=== PATIENT | female | born 1980 | race Caucasian/White ===

== ENCOUNTER 2016-07-26 11:27 | Emergency (ER) | payer SELFPAY ==
[~2016-07-26] VITALS: Ht 154.9 cm; Wt 80.0 kg
[~2016-07-26 11:27] MED LIST: IBUP800T23 PO; PENI500T PO; PERI0.126 SWISH-SPIT; SERO200T PO; SERO400T PO; ZANT150T2 PO
[2016-07-26 11:28] VITALS: BP 180/96; PULSE 83; RESP 14; TEMP 98; O2SAT 96
[2016-07-26] MEDS ORDERED: DEXAMETHASONE SOD PHOS 4 MG/ML VIAL IM ONE (12:15)
[2016-07-26] MEDS ORDERED: IBUPROFEN 800 MG TAB PO ONE (12:15)
[2016-07-26] MEDS ORDERED: BUPIVACAINE HCL PF 0.5% 10 ML VIAL INFIL ONE (12:15)
[2016-07-26] MEDS: RESP: ALBUTEROL 2.5 MG/IPRATROPIUM 0.5 MG NEB (SCH) INH (12:20)
--- NOTE | 2016-07-26 12:25 | PD ---
HPI Chief Complaint: Oral / Dental Pain or Problem Time Seen by Provider: 12:04 Travel History International Travel<30 days: No Contact w/Intl Traveler<30days: No Traveled to known affect area: No History of Present Illness HPI 36-year-old female history of asthma, migraines and bipolar disorder presents to the ED for evaluation of 3 day history of right lower dental pain. Rated 8/ 10. No alleviating or exacerbating factors reported. Patient states that she began to experience a dull headache on the right side of the face, radiating into the right ear ear and bottom jaw this morning. Gradual onset, accompanied by photosensitivity. Denies fever or chills, tearing of the eye, dizziness, vision changes, nausea or vomiting. She states this headache is similar to previous migraines. The patient states that she fractured a lower right tooth last week, inserted a temporary filling and saw a dentist. She states that she did not have the money to have the tooth pulled at the time. PFSH Past Medical History Asthma: Yes Blood Disorders: No Bipolar Disorder: Yes Anxiety: Yes Depression: Yes Heart Rhythm Problems: Yes (AFIB) Cancer: No Cardiac Catheterization: No Cardiovascular Problems: Yes High Cholesterol: Yes Chest Pain: Yes Congestive Heart Failure: No COPD: Yes Diabetes: No Diminished Hearing: No Endocrine: No ( ) Gastrointestinal Disorders: Yes GERD: Yes Genitourinary: No Headaches: Yes Hepatitis: Yes (C) Hiatal Hernia: Yes Hypertension: Yes Immune Disorder: No Implanted Vascular Access Dvce: Yes Insomnia: Yes Musculoskeletal: Yes (Back) Neurologic: No Psychiatric: Yes Reproductive: Yes Respiratory: Yes Integumentary: Yes Immunizations Current: Yes Migraines: Yes Myocardial Infarction: Yes (08/2015) Schizophrenia: Yes Seizures: Yes Sleep Apnea: No Ulcer: Yes PNEUMOCCOCAL Vaccine (Year): 2 ?: Not Menopausal: Yes : 4 Para: 2 Miscarriage: 1 : 1 Ovarian Cysts: Yes Past Surgical History Abdominal Surgery: Yes (HERNIA-APPY) Appendectomy: Yes Body Medical Devices: Plate in neck Cholecystectomy: Yes Coronary Artery Bypass Graft: No Gynecologic Surgery: Yes Hysterectomy: Yes Joint Replacement: Yes (CERVICAL FUSION C4-C5, TITANIUM PLATES) Neurologic Surgery: Yes (CERVICAL FUSION C4/C5-TITANIUM PLATES) Oral Surgery: Yes (WISDOM TEETH) Other Surgery: Yes (CYSTS REMOVED - RIGHT OVARY) Social History Alcohol Use: No Tobacco Use: Yes Substance Use: No Allergies-Medications (Allergen,Severity, Reaction): Coded Allergies: Bees (Verified Allergy, Severe, SWELLING, 07/26/16) Cipro (Verified Allergy, Severe, Edema, 07/26/16) Ciprofloxacin (Verified Allergy, Severe, SWELLING, 07/26/16) Contrast Media (Verified Allergy, Severe, 07/26/16) Grapefruit (Verified Allergy, Severe, TONGUE SWELLS, 07/26/16) Lyrica (Verified Allergy, Severe, NOT SURE, 07/26/16) Morphine (Verified Allergy, Severe, HIVES, 07/26/16) Toradol (Verified Allergy, Severe, HIVES, 07/26/16) Reported Meds & Prescriptions Reported Meds & Active Scripts Active Tramadol (Tramadol HCl) 50 Mg Tab 50 Mg PO Q8H PRN Ibuprofen 800 Mg Tab 800 Mg PO Q6HR PRN Ibuprofen 800 Mg Tab 800 Mg PO Q8H PRN Peridex Liq (Chlorhexidine Gluconate (Mouth) Liq) 0.12% Soln 15 Ml SWISH-SPIT BID 14 Days Penicillin V Potassium 500 Mg Tab 500 Mg PO Q6H 7 Days Reported Zantac (Ranitidine HCl) 150 Mg Tab 150 Mg PO DAILY Seroquel (Quetiapine Fumarate) 200 Mg Tab 200 Mg PO DAILY Seroquel (Quetiapine Fumarate) 400 Mg Tab 600 Mg PO HS Review of Systems Except as stated in HPI: all other systems reviewed are Neg Physical Exam Narrative GENERAL: Well-nourished, well-developed white female, lying on her side in a dark room in no acute distress. SKIN: Warm and dry. HEAD: Normocephalic. Atraumatic. EYES: No scleral icterus. No injection or drainage. PERRLA. EOMI. ENT: Pearly gonzales tympanic membranes bilaterally. Nasal mucosa is moist. Oropharynx without erythema, edema or exudate. DENTAL: No malocclusion. Tooth #30 is fractured with the pulp exposed. No erythema edema or exudates of the surrounding gingiva. NECK: Supple, trachea midline. No JVD or lymphadenopathy. CARDIOVASCULAR: Regular rate and rhythm without murmurs, gallops, or rubs.2+ DP and radial pulses bilaterally. RESPIRATORY: Diffuse wheezing in all lung clements. No accessory muscle use. GASTROINTESTINAL: Abdomen soft, non-tender, nondistended. + Bowel sounds MUSCULOSKELETAL: No cyanosis, or edema. Patient is ambulatory and moves extremities spontaneously. NEUROLOGICAL: Awake and alert. Cranial nerves II through XII intact. Motor and sensory grossly within normal limits. 5/5 muscle strength in all muscle groups. Normal speech. BACK: Nontender without obvious deformity. No CVA tenderness. Data Data Last Documented VS Vital Signs Date Time Temp Pulse Resp B/P Pulse Ox O2 Delivery O2 Flow Rate FiO2 07/26/16 11:28 98.0 83 14 180/96 96 Room Air Orders Bupivacaine Pf 0.5% Inj (Marcaine Pf 0.5 (07/26/16 12:15) Ibuprofen (Motrin) (07/26/16 12:15) Albuterol-Ipratropium Neb (Duoneb Neb) (07/26/16 12:15) Dexamethasone Inj (Decadron Inj) (07/26/16 12:15) MDM Medical Decision Making Medical Screen Exam Complete: Yes Emergency Medical Condition: Yes Differential Diagnosis Dental abscess versus dental fracture versus dental caries versus asthma exacerbation versus migraine headache versus other Narrative Course 36-year-old female history of asthma, migraines and bipolar disorder presents to the ED for evaluation of 3 day history of 8/10 right lower dental pain. Gradual onset. No alleviating or exacerbating factors reported. Accompanied by dull headache, radiating to the right ear and right jaw. Gradual onset with light sensitivity. Denies fever or chills, tearing of the eye, dizziness, vision changes, nausea or vomiting. She states this headache is similar to previous migraines. The patient states that she saw a dentist last week but cannot afford to have the tooth pulled. Vitals reviewed. Physical exam reveals a nontoxic-appearing white female, lying it on the stretcher in the dark in no acute distress. There is a fracture of tooth #30 with a pulp exposed. No evidence of dental abscess. No red flag headache symptoms. Auscultation of the chest reveals diffuse wheezing in all lung clements. An inferior alveolar dental block was performed with 2 cc of 0.5% Marcaine. This resulted in almost immediate improvement of her pain symptoms. She was administered 800 mg ibuprofen, IM dexamethasone and duo nebs 3. Recheck of the lungs reveals improvement. Patient was prescribed a short course of tramadol and ibuprofen. She is instructed to take medication as prescribed, follow up with the dentist. She understands that she may not be able to receive narcotic pain medications if she seeks them here again. She is stable and discharged home. Diagnosis Primary Impression: Dentalgia Additional Impressions: Tooth fracture Qualified Code: S02.5XXA - Closed fracture of tooth, initial encounter Migraine headache Qualified Code: G43.009 - Migraine without aura and without status migrainosus , not intractable Asthma exacerbation Referrals: Dentist Patient Instructions: General Instructions, Migraine Headache (ED), Toothache ( ED) Additional Instructions: Rest, hydrate. Avoid known stressors. Take pain medication as directed, as needed for pain. Follow-up with the dentist as discussed. Return to the ED for any urgent or emergent medical condition. Med/Other Pt SpecificInfo: Prescription(s) given Scripts Tramadol 50 Mg Tab50 Mg PO Q8H PRN (PAIN SCALE 6 TO 10) #10 TAB Ref 0 Prov:Judith Reich DO 07/26/16 Ibuprofen 800 Mg [id number] Mg PO Q6HR PRN (PAIN 1 TO 10 AND/OR AGITATION) #20 TAB Ref 0 Prov:Judith Reich DO 07/26/16 Disposition: 01 DISCHARGE HOME Condition: Stable Alexandra Gomez Jul 26, 2016 12:25
[2016-07-26] MEDS ORDERED: TRAM50TA PO ×2 (12:27→12:40)
[2016-07-26] MEDS ORDERED: IBUP800T23 PO (12:27)
== END 2016-07-26 13:07 | disposition home or self-care (01) ==
LOC: NEPB 11:27
DX: S02.5XXA Fracture of tooth (traumatic), initial encounter for closed fracture (principal); G43.009 Migraine without aura, not intractable, without status migrainosus; J45.901 Unspecified asthma with (acute) exacerbation; I48.91 Unspecified atrial fibrillation; E78.00 Pure hypercholesterolemia, unspecified; J44.9 Chronic obstructive pulmonary disease, unspecified; I10 Essential (primary) hypertension; Z72.0 Tobacco use; X58.XXXA Exposure to other specified factors, initial encounter
CPT/HCPCS: 64400; 94640; 94664; 96372; 99282; J1100

== ENCOUNTER 2016-10-05 18:23 | Emergency (ER) | payer SELFPAY ==
[~2016-10-05] VITALS: Ht 152.4 cm; Wt 81.0 kg
[~2016-10-05 18:23] MED LIST changes: +TRAM50TA PO
[2016-10-05 18:35] VITALS: BP 146/80; PULSE 74; RESP 16; TEMP 99.1; O2SAT 97
[2016-10-05 18:52] VITALS: BP 146/80; PULSE 75; RESP 16; TEMP 99.1; O2SAT 97
[2016-10-05] MEDS ORDERED: SODIUM CHLOR 0.9% 1000 ML INJ 1,000 ML IV ONE (18:59)
[2016-10-05] MEDS ORDERED: SODIUM CHLORIDE 0.9% FLUSH 10 ML FLUSH IVF PRN (19:00)
[2016-10-05] MEDS ORDERED: METOCLOPRAMIDE HCL 10 MG/2 ML VIAL IVP ONE (19:00)
[2016-10-05] MEDS ORDERED: DEXAMETHASONE SOD PHOS 20 MG/5 ML VIAL IV PUSH ONE (19:00)
[2016-10-05] MEDS ORDERED: diphenhydrAMINE HCL 50 MG/ML VIAL IVP ONE (19:00)
--- NOTE | 2016-10-05 19:12 | PD ---
HPI Chief Complaint: Headache Time Seen by Provider: 18:54 Travel History International Travel<30 days: No Contact w/Intl Traveler<30days: No Traveled to known affect area: No History of Present Illness HPI Patient is a 36-year-old female who presents to emergency room with complaints of migraine headache. Patient reports that she has history of migraines, she is in between neurologists at this time. Reports that she used to take Imitrex as well as Fioricet for her symptoms, reports that she has been taking these medications for so long, they no longer help her. Patient reports that her migraine started 2 days ago. Reports that she started did have her typical aura of a "low grade headache" and reports that she woke up the next morning with a "full blown migraine." Patient reports that she is having her typical symptoms with photophobia as well as nausea. Denies fever/chills. Reports that she usually gets some IV pain medications and this usually helps with her symptoms. Denies any other c/o at this time. PFSH Past Medical History Hx Anticoagulant Therapy: No Asthma: Yes Blood Disorders: No Bipolar Disorder: Yes Anxiety: Yes Depression: Yes Heart Rhythm Problems: Yes (AFIB) Cancer: No Cardiac Catheterization: No Cardiovascular Problems: Yes (HTN, [place]) High Cholesterol: Yes Chest Pain: Yes Congestive Heart Failure: No COPD: Yes Diabetes: No Diminished Hearing: No Endocrine: No ( ) Gastrointestinal Disorders: Yes (Gastoparesis) GERD: Yes Genitourinary: No Headaches: Yes Hepatitis: No Hiatal Hernia: Yes Heparin Induced Thrombocytopen: No Hypertension: Yes Immune Disorder: No Implanted Vascular Access Dvce: Yes Insomnia: Yes Musculoskeletal: Yes (Back) Neurologic: No Psychiatric: Yes Reproductive: Yes Respiratory: Yes Integumentary: Yes Immunizations Current: Yes Migraines: Yes Myocardial Infarction: Yes (08/2015) Schizophrenia: Yes Seizures: Yes Sleep Apnea: No Ulcer: Yes Tetanus Vaccination: < 5 Years PNEUMOCCOCAL Vaccine (Year): 2 ?: Not Menopausal: Yes : 4 Para: 2 Miscarriage: 1 : 1 Ovarian Cysts: Yes Past Surgical History Abdominal Surgery: Yes (HERNIA-APPY) Appendectomy: Yes Body Medical Devices: Plate in neck Cholecystectomy: Yes Coronary Artery Bypass Graft: No Gynecologic Surgery: Yes Hysterectomy: Yes Joint Replacement: Yes (CERVICAL FUSION C4-C5, TITANIUM PLATES) Neurologic Surgery: Yes (CERVICAL FUSION C4/C5-TITANIUM PLATES) Oral Surgery: Yes (WISDOM TEETH) Other Surgery: Yes (Appendectomy, Hernia, Back, Gallbladder) Family History Family Myocardial Infarction: Yes Social History Alcohol Use: No Tobacco Use: Yes (07/17 PPD) Substance Use: No Allergies-Medications (Allergen,Severity, Reaction): Coded Allergies: Bees (Verified Allergy, Severe, SWELLING, 10/05/16) Cipro (Verified Allergy, Severe, Edema, 10/05/16) Ciprofloxacin (Verified Allergy, Severe, SWELLING, 10/05/16) Contrast Media (Verified Allergy, Severe, 10/05/16) Grapefruit (Verified Allergy, Severe, TONGUE SWELLS, 10/05/16) Lyrica (Verified Allergy, Severe, NOT SURE, 10/05/16) Morphine (Verified Allergy, Severe, HIVES, 10/05/16) Toradol (Verified Allergy, Severe, HIVES, 10/05/16) Reported Meds & Prescriptions Reported Meds & Active Scripts Active Reported Zantac (Ranitidine HCl) 150 Mg Tab 150 Mg PO DAILY Seroquel (Quetiapine Fumarate) 200 Mg Tab 200 Mg PO DAILY Seroquel (Quetiapine Fumarate) 400 Mg Tab 600 Mg PO HS Review of Systems General / Constitutional: No: Fever Eyes: No: Visual changes HENT: Positive: Headaches Cardiovascular: No: Chest Pain or Discomfort Respiratory: No: Shortness of Breath Gastrointestinal: No: Abdominal Pain Genitourinary: No: Dysuria Musculoskeletal: No: Pain Skin: No Rash Neurologic: Positive: Headache, Other (photophobia), No: Weakness Psychiatric: No: Depression Endocrine: No: Polydipsia Hematologic/Lymphatic: No: Easy Bruising Physical Exam Narrative GENERAL: mild distress SKIN: Warm and dry. HEAD: Atraumatic. Normocephalic. EYES: Pupils equal and round. No scleral icterus. No injection or drainage. ENT: No nasal bleeding or discharge. Mucous membranes pink and moist. NECK: Trachea midline. No JVD. CARDIOVASCULAR: Regular rate and rhythm. No murmur appreciated. RESPIRATORY: No accessory muscle use. Clear to auscultation. Breath sounds equal bilaterally. GASTROINTESTINAL: Abdomen soft, non-tender, nondistended. Hepatic and splenic margins not palpable. MUSCULOSKELETAL: No obvious deformities. No clubbing. No cyanosis. No edema. NEUROLOGICAL: Awake and alert. No obvious cranial nerve deficits. Motor grossly within normal limits. Normal speech. CN 2-12 grossly intact with no neuro deficits PSYCHIATRIC: Appropriate mood and affect; insight and judgment normal. Data Data Last Documented VS Vital Signs Date Time Temp Pulse Resp B/P Pulse Ox O2 Delivery O2 Flow Rate FiO2 10/05/16 20:15 60 18 119/67 99 Room Air 10/05/16 18:52 99.1 Orders Complete Blood Count With Diff (10/05/16 18:59) Basic Metabolic Panel (Bmp) (10/05/16 18:59) Prothrombin Time / Inr (Pt) (10/05/16 18:59) Act Partial Throm Time (Ptt) (10/05/16 18:59) Ecg Monitoring (10/05/16 18:59) Iv Access Insert/Monitor (10/05/16 18:59) Oximetry (10/05/16 18:59) Sodium Chloride 0.9% Flush (Ns Flush) (10/05/16 19:00) Diphenhydramine Inj (Benadryl Inj) (10/05/16 19:00) Metoclopramide Inj (Reglan Inj) (10/05/16 19:00) Sodium Chlor 0.9% 1000 Ml Inj (Ns 1000 M (10/05/16 18:59) Dexamethasone Inj (Decadron Inj) (10/05/16 19:00) Drug Screen, Random Urine (10/05/16 19:01) Potassium Chloride Eff (K-Lyte Cl Eff) (10/05/16 20:45) Labs Laboratory Tests Test 10/05/16 10/05/16 19:40 19:50 Urine Opiates Screen NEG Urine Barbiturates Screen NEG Urine Amphetamines Screen NEG Urine Benzodiazepines Screen NEG Urine Cocaine Screen NEG Urine Cannabinoids Screen POS White Blood Count 8.2 TH/MM3 Red Blood Count 4.53 MIL/MM3 Hemoglobin 14.5 GM/DL Hematocrit 42.8 % Mean Corpuscular Volume 94.5 FL Mean Corpuscular Hemoglobin 31.9 PG Mean Corpuscular Hemoglobin 33.8 % Concent Red Cell Distribution Width 11.4 % Platelet Count 327 TH/MM3 Mean Platelet Volume 6.9 FL Neutrophils (%) (Auto) 50.5 % Lymphocytes (%) (Auto) 39.1 % Monocytes (%) (Auto) 7.6 % Eosinophils (%) (Auto) 2.3 % Basophils (%) (Auto) 0.5 % Neutrophils # (Auto) 4.2 TH/MM3 Lymphocytes # (Auto) 3.2 TH/MM3 Monocytes # (Auto) 0.6 TH/MM3 Eosinophils # (Auto) 0.2 TH/MM3 Basophils # (Auto) 0.0 TH/MM3 CBC Comment DIFF FINAL Differential Comment Prothrombin Time 11.1 SEC Prothromb Time International 1.0 RATIO Ratio Activated Partial 28.3 SEC Thromboplast Time Sodium Level 141 MEQ/L Potassium Level 3.3 MEQ/L Chloride Level 106 MEQ/L Carbon Dioxide Level 25.4 MEQ/L Anion Gap 10 MEQ/L Blood Urea Nitrogen 9 MG/DL Creatinine 0.67 MG/DL Estimat Glomerular Filtration 99 ML/MIN Rate Random Glucose 79 MG/DL Calcium Level 8.6 MG/DL [facility] Medical Decision Making Medical Screen Exam Complete: Yes Emergency Medical Condition: Yes Interpretation(s) Vital Signs Date Time Temp Pulse Resp B/P Pulse Ox O2 Delivery O2 Flow Rate FiO2 10/05/16 18:52 99.1 75 16 146/80 97 10/05/16 18:51 16 97 Room Air 10/05/16 18:35 99.1 74 16 146/80 97 Differential Diagnosis migraine headache, cephalgia, ich Narrative Course Patient is a 36-year-old female who presents to emergency with complaints of migraine headache, patient does have history of headaches in the past similar to her symptoms today. Patient reports that her symptoms have been continuous for the past 2 days, reports that she can't seem to break this migraine headache at home with OTC medications. Patient reports that her headache is exactly the same as previous headaches, patient with benign neuro exam with no neurological deficits. Patient with most likely migraine headache, unlikely that the patient would have an intracranial hemorrhage given her symptoms are typical for her and unchanged. Plan to administer patient migraine cocktail. Patient is requesting high-dose narcotic pain medications for treatment of her symptoms, discussed with patient that narcotic pain medications will most likely give her rebound migraine headache and I do not believe that this is the initial treatment for a migraine headache. Patient is agreeable to migraine cocktail. Plan to monitor patient carefully. CBC & BMP Diagram 10/05/16 19:50 Patient reevaluated, patient has complete resolutions of her symptoms at this time. Patient appreciative of care. Patient will follow-up with her primary care doctor as well as neurologist and return to emergency room as needed. Diagnosis Primary Impression: Migraine headache Qualified Code: G43.109 - Migraine with aura and without status migrainosus, not intractable Referrals: Melanie Giron MD Patient Instructions: General Instructions Additional Instructions: Please follow up with your primary care doctor Please follow-up with neurologist Return to the emergency room as needed Return to emergency room if symptoms progress or worsen Disposition: 01 DISCHARGE HOME Condition: Stable Judith Reich DO Oct 05, 2016 19:12 Judith Reich DO Oct 05, 2016 19:12
[2016-10-05 20:04] LABS: BARBITURATES, URINE NEG (NEG)
[2016-10-05 20:13] LABS: AMPHETAMINE, URINE NEG (NEG)
[2016-10-05 20:13] LABS: AUTOMATED NEUTROPHIL # 4.2 TH/MM3 (1.8-7.7); BASOPHIL % 0.5 % (0.0-2.0); EOSINOPHIL # 0.2 TH/MM3 (0-0.4); EOSINOPHIL % 2.3 % (0.0-4.0); HEMATOCRIT 42.8 % (35.0-46.0); HEMO FLAGS DIFF FINAL; LYMPH % 39.1 % (9.0-44.0); LYMPHOCYTE # 3.2 TH/MM3 (1.0-4.8); MEAN CELL VOLUME 94.5 FL (80.0-100.0); MEAN CORPUSCULAR HEMOGLOBIN 31.9 PG (27.0-34.0); MEAN CORPUSCULAR HGB CONC 33.8 % (32.0-36.0); MONO % 7.6 % (0.0-8.0); NEUT % 50.5 % (16.0-70.0); PLATELET COUNT 327 TH/MM3 (150-450); RED BLOOD COUNT 4.53 MIL/MM3 (4.00-5.30); RED CELL DISTRIBUTION WIDTH 11.4 % (11.6-17.2); WHITE BLOOD COUNT 8.2 TH/MM3 (4.0-11.0)
[2016-10-05 20:14] VITALS: RESP 18; O2SAT 99
[2016-10-05 20:15] VITALS: BP 119/67; PULSE 60; RESP 18; O2SAT 99
[2016-10-05 20:16] LABS: COCAINE, URINE NEG (NEG)
[2016-10-05 20:20] LABS: POTASSIUM 3.3 MEQ/L (3.5-5.1)
[2016-10-05 20:23] LABS: BICARBONATE 25.4 MEQ/L (21.0-32.0)
[2016-10-05 20:25] LABS: APTT (PATIENT) 28.3 SEC (24.3-30.1); PROTHROMBIN TIME - PATIENT 11.1 SEC (9.8-11.6)
[2016-10-05] MEDS ORDERED: POTASSIUM CHLORIDE 25 MEQ EFFERVESCENT TAB PO ONE (20:45)
[2016-10-05 21:10] VITALS: BP 111/76
== END 2016-10-05 21:18 | disposition home or self-care (01) ==
LOC: PHED 18:23
DX: G43.109 Migraine with aura, not intractable, without status migrainosus (principal); F20.9 Schizophrenia, unspecified; G47.00 Insomnia, unspecified; E78.00 Pure hypercholesterolemia, unspecified; F41.8 Other specified anxiety disorders; F17.210 Nicotine dependence, cigarettes, uncomplicated; I48.91 Unspecified atrial fibrillation; I25.2 Old myocardial infarction; Z98.890 Other specified postprocedural states
CPT/HCPCS: 80048; 80307; 85025; 85610; 85730; 96374; 96375; 99283; J1100; J1200; J2765; J7030

== ENCOUNTER 2017-01-30 09:37 | Emergency (ER) | payer SELFPAY ==
[~2017-01-30] VITALS: Ht 154.9 cm; Wt 82.0 kg
[~2017-01-30 09:37] MED LIST changes: -IBUP800T23 PO; -PENI500T PO; -PERI0.126 SWISH-SPIT; -TRAM50TA PO
[2017-01-30 09:41] VITALS: BP 194/106; PULSE 67; RESP 16; TEMP 98.1; O2SAT 100
[2017-01-30 10:01] VITALS: BP 178/107; PULSE 64; O2SAT 99
--- NOTE | 2017-01-30 10:07 | PD ---
HPI Chief Complaint: Abdominal Pain Time Seen by Provider: 09:53 Travel History International Travel<30 days: No Contact w/Intl Traveler<30days: No Traveled to known affect area: No History of Present Illness HPI 36yo F with PMH of peptic ulcer disease, gastroparesis, depression presents to the ED with c/o abdominal pain since yesterday. Pain is epigastric, radiating to the right upper abdomen and then to right flank. Pain is constant and she said she had similar pain in the past but it has been 2 years. Associated with nausea and NBNB vomiting. Also had foul smelling and dark urine. Denies any fever, chest pain, sob, diarrhea, hematuria, vaginal bleeding or discharge. Denies any alcohol abuse. Had partial hysterectomy for endometriosis as well as appendectomy. PFSH Past Medical History Hx Anticoagulant Therapy: No Asthma: Yes Blood Disorders: No Bipolar Disorder: Yes Anxiety: Yes Depression: Yes Heart Rhythm Problems: Yes (AFIB) Cancer: No Cardiac Catheterization: No Cardiovascular Problems: Yes (HTN, NH) High Cholesterol: Yes Chest Pain: Yes Congestive Heart Failure: No COPD: Yes Diabetes: No Diminished Hearing: No Gastrointestinal Disorders: Yes (Gastoparesis) GERD: Yes Genitourinary: No Headaches: Yes Hepatitis: No Hiatal Hernia: Yes Heparin Induced Thrombocytopen: No Hypertension: Yes Immune Disorder: No Implanted Vascular Access Dvce: Yes Insomnia: Yes Musculoskeletal: Yes (Back) Neurologic: No Psychiatric: Yes Reproductive: Yes Respiratory: Yes (ASTHMA) Integumentary: Yes Immunizations Current: Yes Migraines: Yes Myocardial Infarction: Yes (08/2015) Schizophrenia: Yes Seizures: Yes Sleep Apnea: No Ulcer: Yes Influenza Vaccination: Yes PNEUMOCCOCAL Vaccine (Year): 2 ?: Not Menopausal: Yes : 3 Para: 2 Miscarriage: 1 : 1 Ovarian Cysts: Yes Past Surgical History Abdominal Surgery: Yes (HERNIA-APPY) Appendectomy: Yes Body Medical Devices: Plate in neck Cholecystectomy: Yes Coronary Artery Bypass Graft: No Gynecologic Surgery: Yes Hysterectomy: Yes (PARTIAL) Joint Replacement: Yes (CERVICAL FUSION C4-C5, TITANIUM PLATES) Neurologic Surgery: Yes (CERVICAL FUSION C4/C5-TITANIUM PLATES) Oral Surgery: Yes (WISDOM TEETH) Other Surgery: Yes (Appendectomy, Hernia, Back, Gallbladder) Family History Family Myocardial Infarction: Yes Social History Alcohol Use: Yes (RARELY) Tobacco Use: Yes (1 PPD) Substance Use: No Allergies-Medications (Allergen,Severity, Reaction): Coded Allergies: Bees (Verified Allergy, Severe, SWELLING, 01/30/17) Cipro (Verified Allergy, Severe, Edema, 01/30/17) Ciprofloxacin (Verified Allergy, Severe, SWELLING, 01/30/17) Contrast Media (Verified Allergy, Severe, 01/30/17) Grapefruit (Verified Allergy, Severe, TONGUE SWELLS, 01/30/17) Lyrica (Verified Allergy, Severe, NOT SURE, 01/30/17) Morphine (Verified Allergy, Severe, HIVES, 01/30/17) Toradol (Verified Allergy, Severe, HIVES, 01/30/17) Reported Meds & Prescriptions Reported Meds & Active Scripts Active Reported Zantac (Ranitidine HCl) 150 Mg Tab 150 Mg PO BID Seroquel (Quetiapine Fumarate) 200 Mg Tab 200 Mg PO DAILY Seroquel (Quetiapine Fumarate) 400 Mg Tab 600 Mg PO HS Review of Systems Except as stated in HPI: all other systems reviewed are Neg Physical Exam Narrative GENERAL: 36yo F in mild distress. SKIN: Focused skin assessment warm/dry. HEAD: Atraumatic. Normocephalic. CARDIOVASCULAR: Regular rate and rhythm. No murmur appreciated. RESPIRATORY: No accessory muscle use. Clear to auscultation. Breath sounds equal bilaterally. GASTROINTESTINAL: Abdomen soft, Diffuse tenderness to palpation but more epigastric and RUQ. No rebound tenderness or guarding. BACK: +CVA tenderness on right. MUSCULOSKELETAL: No obvious deformities. No clubbing. No cyanosis. No edema. NEUROLOGICAL: Awake and alert. No obvious cranial nerve deficits. Motor grossly within normal limits. Normal speech. PSYCHIATRIC: Appropriate mood and affect; insight and judgment normal. Data Data Last Documented VS Vital Signs Date Time Temp Pulse Resp B/P Pulse Ox O2 Delivery O2 Flow Rate FiO2 01/30/17 11:45 69 21 134/69 99 Room Air 01/30/17 09:41 98.1 Orders Complete Blood Count With Diff (01/30/17 10:01) Comprehensive Metabolic Panel (01/30/17 10:01) Lipase (01/30/17 10:01) Prothrombin Time / Inr (Pt) (01/30/17 10:01) Act Partial Throm Time (Ptt) (01/30/17 10:01) Urinalysis - C+S If Indicated (01/30/17 10:01) Iv Access Insert/Monitor (01/30/17 10:01) Ecg Monitoring (01/30/17 10:01) Oximetry (01/30/17 10:01) Sodium Chloride 0.9% Flush (Ns Flush) (01/30/17 10:15) Ed Urine Pregnancytest Poc (01/30/17 10:01) Ct Abd/Pel W/O Iv Contrast (01/30/17 ) Ondansetron Inj (Zofran Inj) (01/30/17 10:15) Hydromorphone Pf Inj (Dilaudid Pf Inj) (01/30/17 12:15) Labs Laboratory Tests Test 01/30/17 01/30/17 10:25 10:35 White Blood Count 7.8 TH/MM3 Red Blood Count 4.17 MIL/MM3 Hemoglobin 13.8 GM/DL Hematocrit 39.8 % Mean Corpuscular Volume 95.5 FL Mean Corpuscular Hemoglobin 33.2 PG Mean Corpuscular Hemoglobin 34.8 % Concent Red Cell Distribution Width 12.9 % Platelet Count 231 TH/MM3 Mean Platelet Volume 7.7 FL Neutrophils (%) (Auto) 58.9 % Lymphocytes (%) (Auto) 32.5 % Monocytes (%) (Auto) 5.4 % Eosinophils (%) (Auto) 2.5 % Basophils (%) (Auto) 0.7 % Neutrophils # (Auto) 4.6 TH/MM3 Lymphocytes # (Auto) 2.5 TH/MM3 Monocytes # (Auto) 0.4 TH/MM3 Eosinophils # (Auto) 0.2 TH/MM3 Basophils # (Auto) 0.1 TH/MM3 CBC Comment AUTO DIFF Differential Comment AUTO DIFF CONFIRMED Prothrombin Time 10.6 SEC Prothromb Time International 1.0 RATIO Ratio Activated Partial 25.6 SEC Thromboplast Time Sodium Level 141 MEQ/L Potassium Level 3.5 MEQ/L Chloride Level 111 MEQ/L Carbon Dioxide Level 18.9 MEQ/L Anion Gap 11 MEQ/L Blood Urea Nitrogen 6 MG/DL Creatinine 0.69 MG/DL Estimat Glomerular Filtration 95 ML/MIN Rate Random Glucose 143 MG/DL Calcium Level 8.6 MG/DL Total Bilirubin 0.2 MG/DL Aspartate Amino Transf 10 U/L (AST/SGOT) Alanine Aminotransferase 18 U/L (ALT/SGPT) Alkaline Phosphatase 50 U/L Total Protein 6.7 GM/DL Albumin 3.3 GM/DL Lipase 144 U/L Urine Color LIGHT-YELLOW Urine Turbidity CLEAR Urine pH 6.5 Urine Specific [place] 1.003 Urine Protein NEG mg/dL Urine Glucose (UA) NEG mg/dL Urine Ketones NEG mg/dL Urine Occult Blood NEG Urine Nitrite NEG Urine Bilirubin NEG Urine Urobilinogen LESS THAN 2.0 MG/DL Urine Leukocyte Esterase NEG Urine RBC LESS THAN 1 /hpf Urine WBC LESS THAN 1 /hpf Urine Squamous Epithelial <1 /hpf Cells Microscopic Urinalysis Comment CULT NOT INDICATED MDM Medical Decision Making Medical Screen Exam Complete: Yes Emergency Medical Condition: Yes Differential Diagnosis Nephrolithiasis vs. colitis vs. pyelonephritis vs. gastroparesis vs. pancreatitis vs. PUD Narrative Course 36yo F with abdominal pain. Pt states only dilaudid works and she is allergic to morphine and toradol. Pt given 0.5mg of IV dilaudid which improved pain. Labs reviewed, no leukocytosis. Lipase normal. UA negative. CTa/p showed no acute inflammatory process. Diverticulosis of sigmoid colon. Status post cholecystectomy, appendectomy and hysterectomy. VS stable. Pt given zofran which helped with nausea. However, pt is requesting phenergan as prescription since it is cheaper. Return precautions given. Diagnosis Primary Impression: Abdominal pain Qualified Code: R10.11 - Right upper quadrant abdominal pain Patient Instructions: General Instructions Departure Forms: Tests/Procedures, Work Release Enter return to work date: Feb 01, 2017 Additional Instructions: Please follow up with [facility] as outpatient in 3-7 days. Return to the ED if symptoms worsen. Med/Other Pt SpecificInfo: Prescription(s) given Scripts Acetaminophen (Tylenol)325 Mg [id number] Mg PO Q6H PRN (PAIN SCALE 1 TO 4) #20 TAB Ref 0 Prov:ValeriKat DO 01/30/17 Promethazine (Phenergan)25 Mg [id number] Mg PO Q12HR PRN (NAUSEA OR VOMITING) #7 TAB Ref 0 Prov:ValeriKat DO 01/30/17 Disposition: 01 DISCHARGE HOME Condition: Stable TrammellKta DO Jan 30, 2017 10:07
[2017-01-30] MEDS ORDERED: ONDANSETRON HCL 4 MG/2 ML VIAL IV PUSH ONE (10:15)
[2017-01-30] MEDS ORDERED: SODIUM CHLORIDE 0.9% FLUSH 10 ML FLUSH IV FLUSH PRN (10:15)
[2017-01-30 10:16] VITALS: O2SAT 99
[2017-01-30 11:03] LABS: AUTOMATED NEUTROPHIL # 4.6 TH/MM3 (1.8-7.7); BASOPHIL # 0.1 TH/MM3 (0-0.2); BASOPHIL % 0.7 % (0.0-2.0); EOSINOPHIL # 0.2 TH/MM3 (0-0.4); EOSINOPHIL % 2.5 % (0.0-4.0); HEMATOCRIT 39.8 % (35.0-46.0); LYMPH % 32.5 % (9.0-44.0); LYMPHOCYTE # 2.5 TH/MM3 (1.0-4.8); MEAN CELL VOLUME 95.5 FL (80.0-100.0); MEAN CORPUSCULAR HEMOGLOBIN 33.2 PG (27.0-34.0); MEAN CORPUSCULAR HGB CONC 34.8 % (32.0-36.0); MONO % 5.4 % (0.0-8.0); NEUT % 58.9 % (16.0-70.0); PLATELET COUNT 231 TH/MM3 (150-450); RED BLOOD COUNT 4.17 MIL/MM3 (4.00-5.30); RED CELL DISTRIBUTION WIDTH 12.9 % (11.6-17.2); WHITE BLOOD COUNT 7.8 TH/MM3 (4.0-11.0)
[2017-01-30 11:06] LABS: BLOOD, URINE NEG (NEG); GLUCOSE,URINE NEG (NEG); KETONE, URINE NEG (NEG); NITRITE,URINE NEG (NEG); PH, URINE 6.5 (5.0-8.5); SQUAMOUS EPITHELIAL CELL URINE <1 /hpf (0-5); URINE COLOR LIGHT-YELLOW (YELLW/STRAW)
[2017-01-30 11:08] LABS: APTT (PATIENT) 25.6 SEC (24.3-30.1); PROTHROMBIN TIME - PATIENT 10.6 SEC (9.8-11.6)
[2017-01-30 11:10] LABS: COMMENT (UR) CULT NOT INDICATED; CULTURE IF INDICATED CULT NOT INDICATED
[2017-01-30 11:11] LABS: HEMO FLAGS AUTO DIFF
[2017-01-30 11:22] LABS: ANION GAP 11 MEQ/L (5-15); AST (GOT) 10 U/L (15-37); BICARBONATE 18.9 MEQ/L (21.0-32.0); BLOOD UREA NITROGEN 6 MG/DL (7-18); CHLORIDE 111 MEQ/L (98-107); GLOMERULAR FILTRATION RATE 95 ML/MIN (>89); POTASSIUM 3.5 MEQ/L (3.5-5.1); SODIUM (NA) 141 MEQ/L (136-145)
[2017-01-30 11:25] LABS: ALKALINE PHOSPHATASE 50 U/L (45-117); ALT (GPT) 18 U/L (10-53); TOTAL BILIRUBIN ADULT 0.2 MG/DL (0.2-1.0)
[2017-01-30 11:45] VITALS: BP 134/69; PULSE 69; RESP 21; O2SAT 99
[2017-01-30 11:55] LABS: SCAN/DIFF AUTO DIFF CONFIRMED
[2017-01-30] MEDS ORDERED: HYDROmorphone HCL PF 1 MG/ML VIAL IV PUSH ONE (12:15)
--- NOTE | 2017-01-30 13:07 | RADRPT ---
EXAM DATE/TIME: 01/30/2017 12:44 [facility] COMPARISON: CT ABDOMEN & PELVIS W/O CONTRAST, June 07, 2015, 1:33. INDICATIONS : Right upper abdomen pain ORAL CONTRAST: No oral contrast ingested. RADIATION DOSE: 13.72 CTDIvol (mGy) MEDICAL HISTORY : Cardiovascular disease. Hypertension. SURGICAL HISTORY : Cholecystectomy. Appendectomy.Hernia repair,Partial hysterectomy ENCOUNTER: Initial ACUITY: 1 day PAIN SCALE: 8/10 LOCATION: Abdomen TECHNIQUE: Volumetric scanning of the abdomen and pelvis was performed. Using automated exposure control and ad justment of the mA and/or kV according to patient size, radiation dose was kept as low as reasonably achievable to obtain optimal diagnostic quality images. DICOM format image data is available electro nically for review and comparison. FINDINGS: LOWER LUNGS: The visualized lower lungs are clear. LIVER: Homogeneous density without lesion. There is no dilation of the biliary tree. Cholecystectomy clips. SPLEEN: Normal size without lesion. PANCREAS: Within normal limits. KIDNEYS: Normal in size and shape. There is no mass, stone, or hydronephrosis. ADRENAL GLANDS: Within normal limits. VASCULAR: There is no aortic aneurysm. BOWEL/MESENTERY: Postsurgical changes with appendectomy. Bowel unremarkable. No bowel obstruction. There is no free i ntraperitoneal air or fluid. ABDOMINAL WALL: Within normal limits. RETROPERITONEUM: There is no lymphadenopathy. BLADDER: No wall thickening or mass. REPRODUCTIVE: Uterus surgically absent. INGUINAL: There is no lymphadenopathy or hernia. MUSCULOSKELETAL: Within normal limits for patient age. CONCLUSION: 1. No acute inflammatory process. 2. Diverticulosis of the sigmoid colon. 3. Status post cholecystectomy. 4. Appendectomy. 5. Status post hysterectomy. Phil Vargas MD on January 30, 2017 at 13:01 Board Certified Radiologist. This report was verified electronically.
[2017-01-30] MEDS ORDERED: PROM25TA10 PO (13:33)
[2017-01-30] MEDS ORDERED: TYLE325T PO (13:33)
== END 2017-01-30 13:52 | disposition home or self-care (01) ==
LOC: NEPD 09:37
DX: K57.30 Diverticulosis of large intestine without perforation or abscess without bleeding (principal); F20.9 Schizophrenia, unspecified; I25.2 Old myocardial infarction; I10 Essential (primary) hypertension; K21.9 Gastro-esophageal reflux disease without esophagitis; J44.9 Chronic obstructive pulmonary disease, unspecified; E78.00 Pure hypercholesterolemia, unspecified; I48.91 Unspecified atrial fibrillation; F31.9 Bipolar disorder, unspecified
CPT/HCPCS: 74176; 80053; 81001; 83690; 84703; 85025; 85610; 85730; 96374; 96375; 99285; J1170; J2405

== ENCOUNTER 2017-07-21 10:04 | Emergency (ER) | payer SELFPAY ==
[~2017-07-21 10:04] MED LIST changes: +PROM25TA10 PO; +TYLE325T PO
[2017-07-21 10:05] VITALS: BP 166/82; PULSE 86; RESP 16; TEMP 97.7; O2SAT 95
[2017-07-21] MEDS ORDERED: HYDR-3580 (10:17)
[2017-07-21] MEDS ORDERED: HYDR1SOL6 (10:17)
[2017-07-21] MEDS ORDERED: predniSONE 20 MG TAB PO ONE (10:45)
[2017-07-21] MEDS ORDERED: RESP: ALBUTEROL 2.5 MG/IPRATROPIUM 0.5 MG NEB (SCH) NEB ONE (10:45)
--- NOTE | 2017-07-21 10:47 | PD ---
HPI Chief Complaint: Chest Pain Time Seen by Provider: 10:13 Travel History International Travel<30 days: No Contact w/Intl Traveler<30days: No Traveled to known affect area: No History of Present Illness HPI The patient was seen and examined in the presence of the nurse. This patient complains of cough and congestion and chest pain in the left side when she coughs or takes a breath. Also when she moves her torso. Severity is moderate. Duration 2 days. No injury. No fever. No alleviating factors. He has history of asthma and smokes. She's been wheezing. She ran out of her inhaler. PFSH Past Medical History Hx Anticoagulant Therapy: No Asthma: Yes Blood Disorders: No Bipolar Disorder: Yes Anxiety: Yes Depression: Yes Heart Rhythm Problems: Yes (AFIB) Cancer: No Cardiac Catheterization: No Cardiovascular Problems: Yes High Cholesterol: Yes Chest Pain: Yes Congestive Heart Failure: No COPD: Yes Diabetes: No Diminished Hearing: No Gastrointestinal Disorders: Yes GERD: Yes Genitourinary: No Headaches: Yes Hepatitis: No Hiatal Hernia: Yes Heparin Induced Thrombocytopen: No Hypertension: Yes Immune Disorder: No Implanted Vascular Access Dvce: Yes Insomnia: Yes Musculoskeletal: Yes Neurologic: No Psychiatric: Yes Reproductive: Yes Respiratory: Yes (ASTHMA) Integumentary: Yes Immunizations Current: Yes Migraines: Yes Myocardial Infarction: Yes (08/2015) Schizophrenia: Yes Seizures: Yes Sleep Apnea: No Ulcer: Yes Tetanus Vaccination: > 5 Years PNEUMOCCOCAL Vaccine (Year): 2 ?: Not Menopausal: Yes : 3 Para: 2 Miscarriage: 1 : 1 Ovarian Cysts: Yes Past Surgical History Abdominal Surgery: Yes (HERNIA-APPY) Appendectomy: Yes Body Medical Devices: Plate in neck Cholecystectomy: Yes Coronary Artery Bypass Graft: No Gynecologic Surgery: Yes Hysterectomy: Yes (PARTIAL) Joint Replacement: Yes (CERVICAL FUSION C4-C5, TITANIUM PLATES) Neurologic Surgery: Yes (CERVICAL FUSION C4/C5-TITANIUM PLATES) Oral Surgery: Yes (WISDOM TEETH) Other Surgery: Yes (Appendectomy, Hernia, Back, Gallbladder) Family History Family Myocardial Infarction: Yes Social History Alcohol Use: Yes (RARELY) Tobacco Use: Yes (1 PPD) Substance Use: No Allergies-Medications (Allergen,Severity, Reaction): Coded Allergies: bee venom protein (honey bee) (Unverified Allergy, Severe, SWELLING, ) ciprofloxacin (Unverified Allergy, Severe, SWELLING, 07/21/17) diatrizoate meglumine (Unverified Allergy, Severe, 07/21/17) gadobenic acid (Unverified Allergy, Severe, 07/21/17) gadodiamide (Unverified Allergy, Severe, 07/21/17) gadoteridol (Unverified Allergy, Severe, 07/21/17) grapefruit (Unverified Allergy, Severe, TONGUE SWELLS, 07/21/17) iodixanol (Unverified Allergy, Severe, 07/21/17) iohexol (Unverified Allergy, Severe, 07/21/17) ketorolac (Unverified Allergy, Severe, HIVES, 07/21/17) morphine (Unverified Allergy, Severe, HIVES, 07/21/17) pregabalin (Unverified Allergy, Severe, NOT SURE, 07/21/17) Reported Meds & Prescriptions Reported Meds & Active Scripts Active Prednisone 20 Mg Tab 40 Mg PO DAILY Take 40 mg (2 tablets) daily for 5 days Ventolin Hfa 18 GM Inh (Albuterol Sulfate) 90 Mcg/Act Aer 2 Puff INH Q4H PRN Reported Hydrocodone-Acetamin 7.5-325 (Hydrocodone/Acetaminophen) 7.5 Mg-325 Mg Tablet Zantac (Ranitidine HCl) 150 Mg Tab 150 Mg PO BID Seroquel (Quetiapine Fumarate) 400 Mg Tab 600 Mg PO HS Review of Systems General / Constitutional: No: Fever Eyes: No: Visual changes HENT: No: Headaches Cardiovascular: Positive: Chest Pain or Discomfort Respiratory: Positive: Cough, Shortness of Breath, Wheezing Gastrointestinal: No: Abdominal Pain Genitourinary: No: Dysuria Musculoskeletal: No: Pain Skin: No Rash Neurologic: No: Weakness Psychiatric: No: Depression Endocrine: No: Polydipsia Hematologic/Lymphatic: No: Easy Bruising Physical Exam Narrative GENERAL: Well-nourished, well-developed patient in no apparent distress. SKIN: Focused skin assessment reveals no rash and nodules. Skin is Warm and dry. HEAD: Atraumatic. Normocephalic. EYES: Pupils equal and round. No scleral icterus. No injection or drainage. ENT: No nasal bleeding or discharge. Mucous membranes pink and moist. NECK: Trachea midline. No JVD. CARDIOVASCULAR: Regular rate and rhythm. No murmur appreciated. RESPIRATORY: No accessory muscle use. Expiratory wheezing throughout . Breath sounds equal bilaterally. GASTROINTESTINAL: Abdomen soft, non-tender, nondistended. Hepatic and splenic margins not palpable. MUSCULOSKELETAL: No obvious deformities. No clubbing. No cyanosis. No edema. Prominent reproducible rib tenderness in the left anterior and posterior axillary lines. NEUROLOGICAL: Awake and alert. No obvious cranial nerve deficits. Motor grossly within normal limits. Normal speech. PSYCHIATRIC: Appropriate mood and affect; insight and judgment normal. Data Data Last Documented VS Vital Signs Date Time Temp Pulse Resp B/P (MAP) Pulse Ox O2 Delivery O2 Flow Rate FiO2 07/21/17 10:05 97.7 86 16 166/82 (110) 95 Orders Orders Electrocardiogram (07/21/17 ) Chest, Single Ap (07/21/17 ) Albuterol-Ipratropium Neb (Duoneb Neb) (07/21/17 10:45) Prednisone (Deltasone) (07/21/17 10:45) MDM Medical Decision Making Medical Screen Exam Complete: Yes Emergency Medical Condition: Yes Medical Record Reviewed: Yes Differential Diagnosis Asthma, bronchitis, costochondritis Narrative Course I have reviewed the patient's electronic medical record. Patient normal stress testing last year. As an inpatient I gave her a nebulizer treatment and a dose of prednisone I reviewed her EKG which shows sinus rhythm and no ST elevation I reviewed her chest x-ray is normal Patient has chest wall discomfort as well as asthma and likely viral bronchitis We discussed smoking cessation I prescribed her 5 days of prednisone and an albuterol inhaler Diagnosis Primary Impression: Asthma exacerbation Qualified Codes: J45.31 - Mild persistent asthma with (acute) exacerbation Additional Impressions: Acute bronchitis Qualified Codes: J20.9 - Acute bronchitis, unspecified Chest wall pain Additional Instructions: The patient was advised to follow up with their physician and return if they worsen. Stop smoking Med/Other Pt SpecificInfo: Prescription(s) given Scripts Prednisone (Prednisone) 20 Mg Tab 40 MG PO DAILY, #10 TAB 0 Refills Take 40 mg (2 tablets) daily for 5 days Prov: Ruben Montoya MD 07/21/17 Albuterol 18 GM Inh (Ventolin Hfa 18 GM Inh) 90 Mcg/Act Aer 2 PUFF INH Q4H Y for SHORTNESS OF BREATH, #1 INHALER 0 Refills Prov: Ruben Montoya MD 07/21/17 Disposition: 01 DISCHARGE HOME Condition: Stable Ruben Montoya MD Jul 21, 2017 10:47
--- NOTE | 2017-07-21 11:24 | RADRPT ---
EXAM DATE/TIME: 07/21/2017 11:05 [facility] COMPARISON: CHEST SINGLE AP, March 25, 2016, 21:42. INDICATIONS : Chest pain. MEDICAL HISTORY : Cardiovascular disease. Hypertension. SURGICAL HISTORY : Cholecystectomy. Appendectomy.Hernia repair,Partial hysterectomy. ENCOUNTER: Initial ACUITY: 3 days PAIN SCORE: 6/10 LOCATION: Left upper chest FINDINGS: A single view of the chest demonstrates the lungs to be symmetrically aerated without evidence of mas s, infiltrate or effusion. The cardiomediastinal contours are unremarkable. Osseous structures are intact. CONCLUSION: No acute disease. Neri Guzman MD on July 21, 2017 at 11:22 Board Certified Radiologist. This report was verified electronically.
[2017-07-21] MEDS ORDERED: PRED20 PO (11:29)
[2017-07-21] MEDS ORDERED: VENTAER INH (11:29)
--- NOTE | 2017-07-22 13:46 | EKG ---
Date Performed: 07/21/2017 Time Performed: 10:52:43 PTAGE: 37 years EKG: Sinus rhythm POSSIBLE RIGHT VENTRICULAR CONDUCTION DELAY BORDERLINE ECG Since PREVIOUS TRACING , no significant change noted PREVIOUS TRACIN03/26/2016 03.51 DOCTOR: Bhanu Bosch Interpretating Date/Time 07/22/2017 13:45:37
== END 2017-07-21 11:42 | disposition home or self-care (01) ==
LOC: NEPD 10:04
DX: J45.901 Unspecified asthma with (acute) exacerbation (principal); F31.9 Bipolar disorder, unspecified; F41.9 Anxiety disorder, unspecified; I48.91 Unspecified atrial fibrillation; E78.00 Pure hypercholesterolemia, unspecified; J44.9 Chronic obstructive pulmonary disease, unspecified; K21.9 Gastro-esophageal reflux disease without esophagitis; I10 Essential (primary) hypertension; F20.9 Schizophrenia, unspecified
CPT/HCPCS: 71045; 93005; 94664; 99284; J7512

== ENCOUNTER 2017-08-04 16:40 | Emergency (ER) | payer SELFPAY ==
[~2017-08-04 16:40] MED LIST changes: +HYDR-3580; +PRED20 PO; -PROM25TA10 PO; -SERO200T PO; -TYLE325T PO; +VENTAER INH
[2017-08-04 16:46] VITALS: BP 168/96; PULSE 76; RESP 18; TEMP 97.8; O2SAT 99
[2017-08-04] MEDS ORDERED: oxyCODONE/ACETAMINOPHEN 5 MG/325 MG TAB PO ONE (17:30)
[2017-08-04] MEDS ORDERED: BENZ100 PO (17:30)
[2017-08-04] MEDS ORDERED: VENTAER INH (17:30)
[2017-08-04] MEDS ORDERED: RESP: ALBUTEROL 2.5 MG/IPRATROPIUM 0.5 MG NEB (SCH) NEB ONE (17:30)
[2017-08-04] MEDS ORDERED: BENZONATATE 100 MG CAP PO ONE (17:30)
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
[2017-08-06] MEDS ORDERED: CYCL10TA PO (14:32)
== END 2017-08-04 18:39 | disposition home or self-care (01) ==
LOC: NEPD 16:40
DX: J44.0 Chronic obstructive pulmonary disease with (acute) lower respiratory infection (principal); J20.9 Acute bronchitis, unspecified; I10 Essential (primary) hypertension; I48.91 Unspecified atrial fibrillation; E78.00 Pure hypercholesterolemia, unspecified; F31.9 Bipolar disorder, unspecified; F41.9 Anxiety disorder, unspecified; I25.2 Old myocardial infarction; F17.200 Nicotine dependence, unspecified, uncomplicated
CPT/HCPCS: 94664; 99284

== ENCOUNTER 2018-01-26 08:31 | Observation (INO) ==
--- NOTE | 2018-01-26 09:29 | ED ---
HPI General Chief complaint: Medical Clearance Stated complaint: Head Pain/Stomach Pain Time Seen by Provider: 01/26/18 09:29 History of Present Illness HPI narrative: Patient 37-year-old female presents emergency department for evaluation of 2 complaints, versus headache which is been intermittent over the past 2-3 days, this is also been accompanied by epigastric and right upper quadrant abdominal pain. Patient status post cholecystectomy. She has tried some ibuprofen at home without significant relief. She states that it started 2 days ago when she had a few shots of liquor, she states used to be much heavy drinker but has not drank anything significantly in some time for this. No history of pancreatitis in the past, no fevers no cough no congestion, nonbloody and nonbilious emesis no diarrhea. States there is no thunderclap presentation to her headache, denies any visual difficulties. Related Data Home Medications Medication Instructions Recorded Confirmed ibuprofen 400 mg PO QID PRN 01/26/18 01/26/18 loratadine [Claritin] 10 mg PO DAILY 01/26/18 01/26/18 quetiapine [Seroquel XR] 600 mg PO HS 01/26/18 01/26/18 ranitidine HCl [Zantac] 150 mg PO BID 01/26/18 01/26/18 Allergies Allergy/AdvReac Type Severity Reaction Status Date / Time bee venom protein (honey bee) Allergy Severe SWELLING Verified 01/26/18 08:51 ciprofloxacin Allergy Severe SWELLING Verified 01/26/18 08:51 diatrizoate meglumine Allergy Severe Rash, Unverified 01/26/18 08:51 Localized gadobenic acid Allergy Severe Rash, Unverified 01/26/18 08:51 Localized gadodiamide Allergy Severe Rash, Unverified 01/26/18 08:51 Localized gadoteridol Allergy Severe Rash, Unverified 01/26/18 08:51 Localized grapefruit Allergy Severe TONGUE Verified 01/26/18 08:51 SWELLS iodixanol Allergy Severe Rash, Unverified 01/26/18 08:51 Localized iohexol Allergy Severe Rash, Unverified 01/26/18 08:51 Localized ketorolac Allergy Severe HIVES Verified 01/26/18 08:51 morphine Allergy Severe HIVES Unverified 08/06/17 13:41 pregabalin Allergy Severe NOT SURE Unverified 08/06/17 13:41 Review of Systems Except as stated in HPI: all other systems reviewed are negative [facility] Medical History Medical History Depression (Acute) GERD (gastroesophageal reflux disease) (Acute) Surgical History Surgical History H/O hernia repair (Acute) History of cholecystectomy (Acute) History of dental surgery (Acute) History of partial hysterectomy (Acute) Hx of appendectomy (Acute) Social History Social History Substance History: Active Abuse Second Hand Smoke Exposure: Yes Smoking Status: Current every day smoker Tobacco Type: Cigarettes How Often Do You Have a Drink Containing Alcohol: Never Recent Travel in [facility] within the Last 8 Weeks: No Recent Out of Country Travel within the Last 8 Weeks: No Substance Abuse Detail Marijuana: Substance Use Status: Active Route Used Substance Abuse: Inhalation Reason for Use: Calm Down Immunization History Tetanus Immunization: Unsure Hx Influenza Vaccine This Season: No Exam Narrative Exam Narrative: GENERAL: Well-developed appears uncomfortable peer SKIN: Focused skin assessment warm/dry. HEAD: Atraumatic. Normocephalic. EYES: Pupils equal and round. No scleral icterus. No injection or drainage. ENT: No nasal bleeding or discharge. Mucous membranes pink and moist. NECK: Trachea midline. No JVD. CARDIOVASCULAR: Regular rate and rhythm. No murmur appreciated. RESPIRATORY: No accessory muscle use. Clear to auscultation. Breath sounds equal bilaterally. GASTROINTESTINAL: Abdomen soft, moderately tender in the epigastric area, nondistended. Hepatic and splenic margins not palpable. MUSCULOSKELETAL: No obvious deformities. No clubbing. No cyanosis. No edema. NEUROLOGICAL: Awake and alert. No obvious cranial nerve deficits. Motor grossly within normal limits. Normal speech. PSYCHIATRIC: Appropriate mood and affect; insight and judgment normal. Course Initial Documented Vital Signs Temperature 97.9 F 01/26/18 08:36 Pulse Rate 88 01/26/18 08:36 Respiratory Rate 15 01/26/18 08:36 Blood Pressure 197/94 H 01/26/18 08:36 Pulse Oximetry 99 01/26/18 08:36 Last Documented Vital Signs Temperature 98.2 F 01/27/18 16:00 Pulse Rate 53 L 01/27/18 16:00 Respiratory Rate 16 01/27/18 16:00 Blood Pressure 123/74 01/27/18 16:00 Pulse Oximetry 98 01/27/18 16:00 Medical Decision Making MDM Narrative Medical decision making narrative: Patient room to the emergency department, she appears uncomfortable but nontoxic. She did have some tenderness in the right upper quadrant epigastric area. Labs were significant for pancreatitis, fairly mild elevation in lipase with the patient's been vomiting for 3 days, no significant dehydration on labs. The certainly would make an observation criteria. There is no indication for CT scanning of her head, CT scan of the abdomen did not show any acute abnormality. Discussed results with patient she is agreeable to stay, initially given Benadryl Reglan, she still was nauseous and had significant abdominal pain. Morphine and Zofran were given. She was discussed with the residents for admission Differential Diagnosis Differential Diagnosis: Headache, tension headache, cluster headache, migraine headache, acute intracranial abnormality highly unlikely, pancreatitis, gastritis, gastroenteritis. POC Test Results POC Urine Results: Negative Lab Data Result diagrams: 01/27/18 06:00 01/27/18 06:00 Lab Results 01/26/18 01/26/18 01/26/18 Range/Units 09:19 09:19 09:52 WBC 8.6 (4.0-11.0) th/mm3 RBC 4.26 (4.00-5.30) mil/mm3 Hgb 13.5 (11.6-15.3) gm/dL Hct 40.2 (35.0-46.0) % MCV 94.5 (80.0-100.0) fL MCH 31.7 (27.0-34.0) pg MCHC 33.5 (32.0-36.0) % RDW 12.7 (11.6-17.2) % Plt Count 252 (150-450) th/mm3 MPV 7.3 (7.0-11.0) fL Neut % (Auto) 64.4 (16.0-70.0) % Lymph % (Auto) 28.2 (9.0-44.0) % [place] % (Auto) 4.9 (0.0-8.0) % Eos % (Auto) 1.8 (0.0-4.0) % Baso % (Auto) 0.7 (0.0-2.0) % Neut # (Auto) 5.5 (1.8-7.7) th/mm3 Lymph # (Auto) 2.4 (1.0-4.8) th/mm3 [place] # (Auto) 0.4 (0.0-0.9) th/mm3 Eos # (Auto) 0.2 (0.0-0.4) th/mm3 Baso # (Auto) 0.1 (0.0-0.2) th/mm3 WBC Differential . Differential Comment Auto diff final ESR (0-20) mm/hr Sodium (136-145) meq/L Potassium (3.5-5.1) meq/L Chloride (98-107) meq/L Carbon Dioxide (21.0-32.0) meq/L Anion Gap (5-15) meq/L BUN (7-18) mg/dL Creatinine (0.50-1.00) mg/dL Estimated GFR (>89) mL/min Random Glucose (74-106) mg/dL Calcium (8.5-10.1) mg/dL Prot Corrected Calcium (8.5-10.1) mg/dL Total Bilirubin (0.2-1.0) mg/dL AST (15-37) U/L ALT (10-53) U/L Alkaline Phosphatase (45-117) U/L C-Reactive Protein (0.00-0.30) mg/dL Total Protein (6.4-8.2) g/dL Albumin (3.4-5.0) g/dL Triglycerides (42-150) mg/dL Lipase (73-393) U/L Urine Color Yellow (Yellw/Straw) Urine Clarity Clear (Clear) Urine pH 6.0 (5.0-8.5) Ur Specific [place] 1.012 (1.002-1.035) Urine Protein Negative (Neg-Trace) mg/dL Urine Glucose (UA) 50 (Negative) mg/dL Urine Ketones Negative (Negative) mg/dL Urine Occult Blood Negative (Negative) Urine Nitrate Negative (Negative) Urine Bilirubin Negative (Negative) Urine Urobilinogen Less than 2 (Less than 2) mg/dL Ur Leukocyte Esterase Negative (Negative) Urine RBC 1 (0-3) /hpf Urine WBC 1 (0-5) /hpf Ur Squamous Epith Cells 4 (0-5) /hpf Urine Bacteria Rare H (None) /hpf Micro UA Comment Culture not ind Urine Culture Comments Culture not ind Urine Opiates Screen Neg (Neg) Ur Barbiturates Screen Neg (Neg) Ur Amphetamines Screen Neg (Neg) U Benzodiazepines Scrn Neg (Neg) Urine Cocaine Screen Neg (Neg) U Cannabinoids Screen Pos H (Neg) 01/26/18 01/26/18 01/27/18 Range/Units 09:55 09:55 06:00 WBC 7.8 (4.0-11.0) th/mm3 RBC 4.07 (4.00-5.30) mil/mm3 Hgb 13.1 (11.6-15.3) gm/dL Hct 38.2 (35.0-46.0) % MCV 94.1 (80.0-100.0) fL MCH 32.1 (27.0-34.0) pg MCHC 34.2 (32.0-36.0) % RDW 12.3 (11.6-17.2) % Plt Count 243 (150-450) th/mm3 MPV 7.2 (7.0-11.0) fL Neut % (Auto) 47.1 (16.0-70.0) % Lymph % (Auto) 44.6 H (9.0-44.0) % [place] % (Auto) 5.6 (0.0-8.0) % Eos % (Auto) 1.9 (0.0-4.0) % Baso % (Auto) 0.8 (0.0-2.0) % Neut # (Auto) 3.7 (1.8-7.7) th/mm3 Lymph # (Auto) 3.5 (1.0-4.8) th/mm3 [place] # (Auto) 0.4 (0.0-0.9) th/mm3 Eos # (Auto) 0.1 (0.0-0.4) th/mm3 Baso # (Auto) 0.1 (0.0-0.2) th/mm3 WBC Differential . Differential Comment Auto diff final ESR (0-20) mm/hr Sodium 140 (136-145) meq/L Potassium 4.0 (3.5-5.1) meq/L Chloride 109 H (98-107) meq/L Carbon Dioxide 18.3 L (21.0-32.0) meq/L Anion Gap 13 (5-15) meq/L BUN 15 (7-18) mg/dL Creatinine 0.77 (0.50-1.00) mg/dL Estimated GFR 83 L (>89) mL/min Random Glucose 154 H (74-106) mg/dL Calcium 8.5 (8.5-10.1) mg/dL Prot Corrected Calcium (8.5-10.1) mg/dL Total Bilirubin 0.3 (0.2-1.0) mg/dL AST 24 (15-37) U/L ALT 23 (10-53) U/L Alkaline Phosphatase 60 (45-117) U/L C-Reactive Protein Less than 0.29 (0.00-0.30) mg/dL Total Protein 6.8 (6.4-8.2) g/dL Albumin 3.4 (3.4-5.0) g/dL Triglycerides 260 H (42-150) mg/dL Lipase 817 H (73-393) U/L Urine Color (Yellw/Straw) Urine Clarity (Clear) Urine pH (5.0-8.5) Ur Specific [place] (1.002-1.035) Urine Protein (Neg-Trace) mg/dL Urine Glucose (UA) (Negative) mg/dL Urine Ketones (Negative) mg/dL Urine Occult Blood (Negative) Urine Nitrate (Negative) Urine Bilirubin (Negative) Urine Urobilinogen (Less than 2) mg/dL Ur Leukocyte Esterase (Negative) Urine RBC (0-3) /hpf Urine WBC (0-5) /hpf Ur Squamous Epith Cells (0-5) /hpf Urine Bacteria (None) /hpf Micro UA Comment Urine Culture Comments Urine Opiates Screen (Neg) Ur Barbiturates Screen (Neg) Ur Amphetamines Screen (Neg) U Benzodiazepines Scrn (Neg) Urine Cocaine Screen (Neg) U Cannabinoids Screen (Neg) 01/27/18 01/27/18 Range/Units 06:00 13:20 WBC (4.0-11.0) th/mm3 RBC (4.00-5.30) mil/mm3 Hgb (11.6-15.3) gm/dL Hct (35.0-46.0) % MCV (80.0-100.0) fL MCH (27.0-34.0) pg MCHC (32.0-36.0) % RDW (11.6-17.2) % Plt Count (150-450) th/mm3 MPV (7.0-11.0) fL Neut % (Auto) (16.0-70.0) % Lymph % (Auto) (9.0-44.0) % [place] % (Auto) (0.0-8.0) % Eos % (Auto) (0.0-4.0) % Baso % (Auto) (0.0-2.0) % Neut # (Auto) (1.8-7.7) th/mm3 Lymph # (Auto) (1.0-4.8) th/mm3 [place] # (Auto) (0.0-0.9) th/mm3 Eos # (Auto) (0.0-0.4) th/mm3 Baso # (Auto) (0.0-0.2) th/mm3 WBC Differential Differential Comment ESR 7 (0-20) mm/hr Sodium 141 (136-145) meq/L Potassium 3.9 (3.5-5.1) meq/L Chloride 117 H D (98-107) meq/L Carbon Dioxide 14.4 L (21.0-32.0) meq/L Anion Gap 10 (5-15) meq/L BUN 11 (7-18) mg/dL Creatinine 0.61 (0.50-1.00) mg/dL Estimated GFR Greater than 89 (>89) mL/min Random Glucose 72 L (74-106) mg/dL Calcium 7.4 L* D (8.5-10.1) mg/dL Prot Corrected Calcium 8.2 L (8.5-10.1) mg/dL Total Bilirubin (0.2-1.0) mg/dL AST (15-37) U/L ALT (10-53) U/L Alkaline Phosphatase (45-117) U/L C-Reactive Protein (0.00-0.30) mg/dL Total Protein 5.6 L D (6.4-8.2) g/dL Albumin (3.4-5.0) g/dL Triglycerides (42-150) mg/dL Lipase 238 (73-393) U/L Urine Color (Yellw/Straw) Urine Clarity (Clear) Urine pH (5.0-8.5) Ur Specific [place] (1.002-1.035) Urine Protein (Neg-Trace) mg/dL Urine Glucose (UA) (Negative) mg/dL Urine Ketones (Negative) mg/dL Urine Occult Blood (Negative) Urine Nitrate (Negative) Urine Bilirubin (Negative) Urine Urobilinogen (Less than 2) mg/dL Ur Leukocyte Esterase (Negative) Urine RBC (0-3) /hpf Urine WBC (0-5) /hpf Ur Squamous Epith Cells (0-5) /hpf Urine Bacteria (None) /hpf Micro UA Comment Urine Culture Comments Urine Opiates Screen (Neg) Ur Barbiturates Screen (Neg) Ur Amphetamines Screen (Neg) U Benzodiazepines Scrn (Neg) Urine Cocaine Screen (Neg) U Cannabinoids Screen (Neg) Imaging Data Radiologist's impression: Abdomen/Pelvis CT 01/26/18 13:41 CONCLUSION: No evidence of acute abdominal or pelvic process. No masses are identified. Diverticulosis without evidence of diverticulitis. Discharge Plan Discharge Disposition Patient Disposition: 30 Still Patient Discharge Condition Condition: Stable Discharge Details Anticipated Discharge Date: 01/27/18 Physicians Team ED Provider: Neri Oneill Primary Care Provider: Primary Care Alayna Matamoros Attending Provider: Estrellita Power Status ED Status: Left Department Discharge Information Discharge Date/Time: 01/26/18 18:22
[2018-01-26] MEDS ORDERED: Sod Chloride 0.9% Inj 1,000 ML IV.SIG ONE (09:37)
[2018-01-26 09:44] LABS: Bacteria,Urine Rare /hpf; Bilirubin,Urine Negative (Negative); Color,Urine Yellow (Yellw/Straw); Glucose,Urine (UA) 50 mg/dL (Negative); Leukocyte Esterase,Urine Negative (Negative); Nitrite,Urine Negative (Negative); Specific Gravity,Urine 1.012 (1.002-1.035); Squamous Epithelial Cell,Urine 4 /hpf (0-5)
[2018-01-26 09:45] LABS: Clarity,Urine Clear (Clear)
[2018-01-26 10:14] LABS: Baso # (Auto) 0.1 th/mm3 (0.0-0.2); Baso % (Auto) 0.7 % (0.0-2.0); Eos # (Auto) 0.2 th/mm3 (0.0-0.4); Eos % (Auto) 1.8 % (0.0-4.0); Hematocrit 40.2 % (35.0-46.0); Hemoglobin 13.5 gm/dL (11.6-15.3); Lymph # (Auto) 2.4 th/mm3 (1.0-4.8); Lymph % (Auto) 28.2 % (9.0-44.0); Mean Corpuscular HGB Conc 33.5 % (32.0-36.0); Mean Corpuscular Hemoglobin 31.7 pg (27.0-34.0); Mean Corpuscular Volume 94.5 fL (80.0-100.0); Mean Platelet Volume 7.3 fL (7.0-11.0); Mono # (Auto) 0.4 th/mm3 (0.0-0.9); Mono % (Auto) 4.9 % (0.0-8.0); Neut # (Auto) 5.5 th/mm3 (1.8-7.7); Neut % (Auto) 64.4 % (16.0-70.0); Platelet Count 252 th/mm3 (150-450); Red Blood Count 4.26 mil/mm3 (4.00-5.30); Red Cell Distribution Width 12.7 % (11.6-17.2); White Blood Count 8.6 th/mm3 (4.0-11.0)
[2018-01-26 10:32] LABS: Alanine Aminotransferase 23 U/L (10-53); Alkaline Phosphatase 60 U/L (45-117); Glucose,Random 154 mg/dL (74-106); Lipase 817 U/L (73-393); Total Protein 6.8 g/dL (6.4-8.2)
[2018-01-26 11:16] LABS: Albumin 3.4 g/dL (3.4-5.0); Anion Gap 13 meq/L (5-15); Aspartate Aminotransferase 24 U/L (15-37); Blood Urea Nitrogen 15 mg/dL (7-18); Calcium 8.5 mg/dL (8.5-10.1); Carbon Dioxide 18.3 meq/L (21.0-32.0); Chloride 109 meq/L (98-107); Glomerular Filtration Rate 83 mL/min (>89); Sodium 140 meq/L (136-145)
--- NOTE | 2018-01-26 14:10 | CT ---
EXAM DATE: 01/26/2018 2:05 PM EDT AGE/SEX: 37 years / Female INDICATIONS: Upper abdomen pain for three days. CLINICAL DATA: This is the patient's initial encounter. Patient reports that signs and symptoms have been present for 3 days and indicates a pain score of 7/10. MEDICAL/SURGICAL HISTORY: Gastroparesis. Gastroesophageal reflux disease. Hysterectomy. Appen dectomy. Cholecystectomy. RADIATION DOSE: 9.3 CTDI (mGy) COMPARISON: No prior exams available for comparison. TECHNIQUE: Multiple contiguous axial images were obtained through the abdomen. Images were obtained using multiple row detector helical technique. Using automated exposure control and adjustment of the mA and/or kV according to patient size, radiation dose was kept as low as reasonably achievable to o btain optimal diagnostic quality images. DICOM format image data is available electronically for rev iew and comparison. FINDINGS: Examination of the lung bases demonstrates no abnormality. No pleural fluid is identified. No pulmona ry nodules are present. The liver and spleen are normal in size and no focal defects are identified. The gallbladder is absent. The pancreas demonstrates normal contour without evidence of mass or duct al dilatation. The adrenal glands and kidneys appear normal bilaterally. No hydronephrosis or mass le sions are identified. Examination of the pelvis demonstrates no evidence of free fluid or pelvic mass. No abnormally enlarg ed inguinal or retroperitoneal lymph nodes are present. The bladder is unremarkable. There is diverti culosis without evidence of diverticulitis. CONCLUSION: No evidence of acute abdominal or pelvic process. No masses are identified. Diverticulosis without evidence of diverticulitis. Electronically signed by: Joshua Waite MD 01/26/2018 2:09 PM EDT
--- NOTE | 2018-01-26 16:45 | P.HPFP ---
History of Present Illness Primary Care Physician: No Primary Care Physician <Estrellita Power - 01/27/18 20:58> No Primary Care Physician <Autumn Gastelum - 01/26/18 16:45> Chief Complaint: abdominal pain <Autumn Gastelum - 01/27/18 06:46> History of Present Illness: Ms. Irizarry is a 37-year-old white female with past medical history of gastroparesis, bipolar disorder, anxiety presenting with abdominal pain and headache. She describes the headache as a 9/10 dull pain that started 3 days ago. She took some ibuprofen, but it led into a migraine. She experienced vomiting, flashes of light, a feeling of stabbing and twisting in her right eye that was off and on. She stated that the flashes of light looked like firecrackers. She also experienced pressure on the right side of her head, photophobia, phonophobia, and smells bother her. Also tried Excedrin and other [id number] pain medications for migraines. She states that the pain became worse and worse until she could not handle it anymore. She describes her abdominal pain is a 8/10 burning type pain over the top of her gallbladder incision in her RUQ/epigastric region that radiates through to her back. Is worse with eating and vomiting, better with laying down and the medication ([place]) that she got in the ED. She states that when she belches it tasted spell like sulfur. Also she has passes gas it smells the same way. She does have a history of GERD. The last meal that she kept down was 3 days ago, before the vomiting began. She was diagnosed with gastroparesis 15 years ago, the result of a gastric emptying study. She was on Reglan about a year ago. Of note, she has been sober from alcohol for 7 years. She had previously gone to rehab. However, she had an alcoholic beverage of vodka mixed with bond Coke last night due to her headache being so bad. PMH Gastroparesis Asthma Bipolar disorder Anxiety PSH Cholecystectomy Appendectomy partial hysterectomy Umbilical hernia repairx2 C4,5 fusion in neck FHx Mother- , heart dz Father-, lung ca Social hx [place] with delilah' Works with 01/23 Alcohol- sober for 7 yrs Tobacco- 1/2ppd, greatly decreased, since 13yo Illicit- marijuana occasionally <Autumn Gastelum 01/27/18 06:46> - Diagnosis (1) Pancreatitis (2) Gastroparesis (3) Migraine (4) Alcohol use (5) Bipolar disorder (6) Marijuana abuse <Estrellita Power 01/27/18 20:58> (1) Pancreatitis (2) Gastroparesis (3) Migraine (4) Alcohol use (5) Bipolar disorder (6) Nutrition, metabolism, and development symptoms (7) DVT prophylaxis <Autumn Gastelum 01/27/18 06:51> Inpatient Certification: CORRECTED DOCUMENTATION: Pt admitted under observation. <Estrellita Power 01/27/18 20:58> I certify that the inpatient services were ordered in accordance with Medicare regulations governing the order. This includes certification that hospital inpatient services are reasonable and necessary and in the case of services not specified as inpatient-only under 42 CFR 419.22(n), that they are appropriately provided as inpatient services in accordance to with the 2-midnight benchmark under 43 CFR 412.3(e) <Autumn Gastelum 01/26/18 16:45> Review of Systems Constitutional: Denies chills, Denies fever(s), Denies night sweats <Autumn Gastelum 01/26/18 16:45> Eyes: Reports sensitivity to light <Autumn Gastelum 01/26/18 16:45> Ears, Nose, Mouth, and Throat: Reports nasal congestion <OrianaAutumn Lorena 16:45> Cardiovascular: Denies chest pain <OrianaAutumn Lorena 01/26/18 16:45> Respiratory: Denies cough, Denies shortness of breath <[place],Autumn Carrillo 16:45> Gastrointestinal: Reports abdominal pain, Reports loose stools (4x day), Reports vomiting, Denies bright, red blood in stools <OrianaAutumn Lorena 01/26/18 16:45> Genitourinary: Denies difficulty urinating <OrianaAutumn Lorena 01/26/18 16:45> Musculoskeletal: Denies muscle weakness <OrianaAutumn Lorena 01/26/18 16:45> Neurologic: Reports dizziness, Denies fainting <Autumn Gastelum 01/26/18 16:45> PMFSH - History History Provided By: Patient <Autumn Gastelum 01/26/18 16:45> - Medical History Medical History: Medical History (Last Updated 01/26/18 @ 09:00 by Azalia Gomez) Depression GERD (gastroesophageal reflux disease) <Estrellita Power - 01/27/18 20:58> Medical History (Last Updated 01/26/18 @ 09:00 by Azalia Gomez) Depression GERD (gastroesophageal reflux disease) <Autumn Gastelum 01/26/18 16:45> - Surgical History Surgical History: Surgical History (Last Updated 01/26/18 @ 09:00 by Azalia Gomez) H/O hernia repair History of cholecystectomy History of dental surgery History of partial hysterectomy Hx of appendectomy <Estrellita Power - 01/27/18 20:58> Surgical History (Last Updated 01/26/18 @ 09:00 by Azalia Gomez) H/O hernia repair History of cholecystectomy History of dental surgery History of partial hysterectomy Hx of appendectomy <Autumn Gastelum 01/26/18 16:45> - Tobacco History Tobacco Use In Past 30 Days: Yes <Autumn Gastelum 01/26/18 16:45> Smoking Status: Current every day smoker <Autumn Gastelum 01/26/18 16:45> Tobacco Type: Cigarettes <Autumn Gastelum 01/26/18 16:45> - Alcohol History How Often Do You Have a Drink Containing Alcohol: Never <Autumn Gastelum 16:45> - Substance Use Type Marijuana Status: Active <Autumn Gastelum 01/26/18 16:45> Route Used: Inhalation <Autumn Gastelum 01/26/18 16:45> Reason for Use: Calm Down <Autumn Gastelum 01/26/18 16:45> - Travel History Recent Travel in the [place] Within the Last 8 Weeks: No <Autumn Gastelum 01/26/18 16:45> Recent Travel Out of the Country Within the Last 8 Weeks: No <Autumn Gastelum 01/26/18 16:45> - Immunization History Tetanus Immunization: Unsure <Autumn Gastelum G - 01/26/18 16:45> Hx Influenza Vaccine This Season: No <Autumn Gastelum G - 01/26/18 16:45> Medications and Allergies Allergies Allergy/AdvReac Type Severity Reaction Status Date / Time bee venom protein (honey bee) Allergy Severe SWELLING Verified 01/26/18 08:51 ciprofloxacin Allergy Severe SWELLING Verified 01/26/18 08:51 diatrizoate meglumine Allergy Severe Rash, Unverified 01/26/18 08:51 Localized gadobenic acid Allergy Severe Rash, Unverified 01/26/18 08:51 Localized gadodiamide Allergy Severe Rash, Unverified 01/26/18 08:51 Localized gadoteridol Allergy Severe Rash, Unverified 01/26/18 08:51 Localized grapefruit Allergy Severe TONGUE Verified 01/26/18 08:51 SWELLS iodixanol Allergy Severe Rash, Unverified 01/26/18 08:51 Localized iohexol Allergy Severe Rash, Unverified 01/26/18 08:51 Localized ketorolac Allergy Severe HIVES Verified 01/26/18 08:51 morphine Allergy Severe HIVES Unverified 08/06/17 13:41 pregabalin Allergy Severe NOT SURE Unverified 08/06/17 13:41 <Estrellita Power - 01/27/18 20:58> Home Medications Medication Instructions Recorded Confirmed Type ibuprofen 400 mg PO QID PRN 01/26/18 01/26/18 History loratadine [Claritin] 10 mg PO DAILY 01/26/18 01/26/18 History quetiapine [Seroquel XR] 600 mg PO HS 01/26/18 01/26/18 History ranitidine HCl [Zantac] 150 mg PO BID 01/26/18 01/26/18 History <Estrellita Power - 01/27/18 20:58> Active Medications: Active Medications Hydrocodone Bitart/Acetaminophen ([place] 5/325) 1 tab PO Q6H PRN PRN Reason: PAIN SCALE 6 TO 10 Last Admin: 01/27/18 17:28 Dose: 1 tab Diphenhydramine HCl (Benadryl Inj) 50 mg IV.PUSH Q6H PRN PRN Reason: RASH Flumazenil (Romazecon Inj) 0.2 mg IV.PUSH Q1M PRN PRN Reason: OVERSEDATION Haloperidol Lactate (Haldol Inj) 1 mg IV.PUSH Q15M PRN PRN Reason: for severe agitation Sodium Chloride (Ns Inj) 1,000 mls @ 200 mls/hr IV.CONT .Q5H EB Last Admin: 01/27/18 05:31 Dose: 200 mls/hr Lorazepam (Ativan) 1 mg PO Q4H PRN PRN Reason: for CIWA 8-10 Lorazepam (Ativan) 2 mg PO Q2H PRN PRN Reason: for CIWA 11-14 Lorazepam (Ativan Inj) 2 mg IV.PUSH Q2H PRN PRN Reason: for CIWA 11-14 Lorazepam (Ativan Inj) 2 mg IV.PUSH Q1H PRN PRN Reason: for CIWA 15-20 Lorazepam (Ativan Inj) 1 mg IV.PUSH Q4H PRN PRN Reason: for CIWA 8-10 Lorazepam (Ativan Inj) 2 mg IV.PUSH Q15M PRN PRN Reason: for CIWA > 20 Ondansetron HCl (Zofran Odt) 4 mg PO Q6H PRN PRN Reason: NAUSEA OR VOMITING Last Admin: 01/26/18 21:00 Dose: 4 mg Pantoprazole Sodium (Protonix Inj) 40 mg IV.PUSH Q24H EB Last Admin: 01/27/18 09:59 Dose: 40 mg Quetiapine Fumarate (Seroquel Xr) 300 mg PO HS [facility] Last Admin: 01/26/18 21:00 Dose: 300 mg Sodium Chloride (Ns Flush) 2 ml IV.FLUSH BID [facility] Last Admin: 01/27/18 10:00 Dose: 2 ml Sodium Chloride (Ns Flush) 2 ml IV.FLUSH PRN PRN PRN Reason: FLUSH AFTER USING IV ACCESS Sumatriptan Succinate (Imitrex Inj) 6 mg SQ ONCE PRN PRN Reason: SEVERE HEADACHE <Estrellita Power - 01/27/18 20:58> Active Medications Sodium Chloride (Ns Inj) 1,000 mls @ 200 mls/hr IV.CONT .Q5H EB Sodium Chloride (Ns Flush) 2 ml IV.FLUSH BID EB Sodium Chloride (Ns Flush) 2 ml IV.FLUSH PRN PRN PRN Reason: FLUSH AFTER USING IV ACCESS <Autumn Gastelum - 01/26/18 16:45> Exam Vital signs: Vital Signs 01/27/18 00:18 01/27/18 03:48 01/27/18 08:00 Temperature 97.9 F 97.9 F 98.1 F Pulse Rate 61 58 L Respiratory Rate 16 17 16 Blood Pressure 102/63 108/60 112/66 Pulse Oximetry 95 96 96 01/27/18 12:00 01/27/18 16:00 Temperature 98.3 F 98.2 F Pulse Rate 55 L 53 L Respiratory Rate 16 16 Blood Pressure 111/60 123/74 Pulse Oximetry 98 98 Intake & Output 01/27/18 01/27/18 01/28/18 06:59 18:59 06:59 Intake Total 3000 / 3000 Balance 3000 / 3000 Intake: IV 3000 / 3000 NS Inj 1,000 ML @ 200 mls/hr IV 3000 / 3000 .CONT .Q5H [facility] Rx#:[id number] <Estrellita Power - 01/27/18 20:58> Vital Signs 01/26/18 08:36 01/26/18 12:40 Temperature 97.9 F Pulse Rate 88 67 Respiratory Rate 15 14 Blood Pressure 197/94 H 120/72 Pulse Oximetry 99 98 Intake & Output 01/25/18 01/26/18 01/26/18 18:59 06:59 18:59 Weight 81.6 kg <Autumn Gastelum - 01/26/18 16:45> Narrative: GENERAL: Female laying in bed on her phone, in no acute distress SKIN: Warm and dry. HEAD: Atraumatic. Normocephalic. EYES: No scleral icterus. No injection or drainage. ENT: No nasal bleeding or discharge. Mucous membranes pink and moist. NECK: Trachea midline. No JVD. CARDIOVASCULAR: Regular rate and rhythm. RESPIRATORY: No accessory muscle use. Clear to auscultation. Breath sounds equal bilaterally. GASTROINTESTINAL: Abdomen soft, tender diffusely, but especially tender at epigastric and RUQ regions, nondistended. Hepatic and splenic margins not palpable. MUSCULOSKELETAL: Extremities without clubbing, cyanosis, or edema. No obvious deformities. NEUROLOGICAL: Awake and alert. No obvious cranial nerve deficits. Motor grossly within normal limits. Five out of 5 muscle strength in the arms and legs. Normal speech. PSYCHIATRIC: Appropriate mood and affect; insight and judgment normal. <Autumn Gastelum [place] - 01/27/18 06:46> Results - Labs Result diagrams: 01/27/18 06:00 01/27/18 06:00 <Ida Powere - 01/27/18 20:58> Abnormal lab results 01/27/18 01/27/18 Range/Units 06:00 06:00 Lymph % (Auto) 44.6 H (9.0-44.0) % Chloride 117 H D (98-107) meq/L Carbon Dioxide 14.4 L (21.0-32.0) meq/L Random Glucose 72 L (74-106) mg/dL Calcium 7.4 L* D (8.5-10.1) mg/dL Prot Corrected Calcium 8.2 L (8.5-10.1) mg/dL Total Protein 5.6 L D (6.4-8.2) g/dL Short CBC 01/27/18 Range/Units 06:00 WBC 7.8 (4.0-11.0) th/mm3 Hgb 13.1 (11.6-15.3) gm/dL Hct 38.2 (35.0-46.0) % Plt Count 243 (150-450) th/mm3 [facility] 01/27/18 06:00 Sodium 141 Potassium 3.9 Chloride 117 H D Carbon Dioxide 14.4 L BUN 11 Creatinine 0.61 Calcium 7.4 L* D <Estrellita Power - 01/27/18 20:58> Abnormal lab results 01/26/18 01/26/18 Range/Units 09:19 09:55 Chloride 109 H (98-107) meq/L Carbon Dioxide 18.3 L (21.0-32.0) meq/L Estimated GFR 83 L (>89) mL/min Random Glucose 154 H (74-106) mg/dL Lipase 817 H (73-393) U/L Urine Bacteria Rare H (None) /hpf Short CBC 01/26/18 Range/Units 09:52 WBC 8.6 (4.0-11.0) th/mm3 Hgb 13.5 (11.6-15.3) gm/dL Hct 40.2 (35.0-46.0) % Plt Count 252 (150-450) th/mm3 [facility] 01/26/18 09:55 Sodium 140 Potassium 4.0 Chloride 109 H Carbon Dioxide 18.3 L BUN 15 Creatinine 0.77 Calcium 8.5 Liver Function 01/26/18 Range/Units 09:55 Total Bilirubin 0.3 (0.2-1.0) mg/dL AST 24 (15-37) U/L ALT 23 (10-53) U/L Alkaline Phosphatase 60 (45-117) U/L Albumin 3.4 (3.4-5.0) g/dL Urine 01/26/18 Range/Units 09:19 Urine Color Yellow (Yellw/Straw) Urine Clarity Clear (Clear) Urine pH 6.0 (5.0-8.5) Ur Specific [place] 1.012 (1.002-1.035) Urine Protein Negative (Neg-Trace) mg/dL Urine Glucose (UA) 50 (Negative) mg/dL <Autumn Gastelum - 01/26/18 16:45> - Imaging Impressions Abdomen/Pelvis CT 01/26/18 13:41 CONCLUSION: No evidence of acute abdominal or pelvic process. No masses are identified. Diverticulosis without evidence of diverticulitis. <Autumn Gastelum - 01/26/18 16:45> Caprini VTE Risk Assessment Caprini VTE Risk Assessment: Moderate/High Risk (score >= 2) <Autumn Gastelum - 01/27/18 06:46> Caprini Risk Assessment Model: Point Value = 1 Point Value = 2 Point Value = 3 Point Value = 5 Age 41-60 Minor surgery BMI > 25 kg/m2 Swollen legs Varicose veins or History of unexplained or recurrent spontaneous Oral contraceptives or hormone replacement Sepsis (< 1 month) Serious lung disease, including pneumonia (< 1 month) Abnormal pulmonary function Acute myocardial infarction Congestive heart failure (< 1 month) History of inflammatory bowel disease Medical patient at bed rest Age 61-74 Arthroscopic surgery Major open surgery (> 45 min) Laparoscopic surgery (> 45 min) Malignancy Confined to bed (> 72 hours) Immobilizing plaster cast Central venous access Age >= 75 History of VTE Family history of VTE Factor V Leiden Prothrombin [id number] Lupus anticoagulant Anticardiolipin antibodies Elevated serum homocysteine Heparin-induced thrombocytopenia Other congenital or acquired thrombophilia Stroke (< 1 month) Elective arthroplasty Hip, pelvis, or leg fracture Acute spinal cord injury (< 1 month) <Estrellita Power - 01/27/18 20:58> Point Value = 1 Point Value = 2 Point Value = 3 Point Value = 5 Age 41-60 Minor surgery BMI > 25 kg/m2 Swollen legs Varicose veins or History of unexplained or recurrent spontaneous Oral contraceptives or hormone replacement Sepsis (< 1 month) Serious lung disease, including pneumonia (< 1 month) Abnormal pulmonary function Acute myocardial infarction Congestive heart failure (< 1 month) History of inflammatory bowel disease Medical patient at bed rest Age 61-74 Arthroscopic surgery Major open surgery (> 45 min) Laparoscopic surgery (> 45 min) Malignancy Confined to bed (> 72 hours) Immobilizing plaster cast Central venous access Age >= 75 History of VTE Family history of VTE Factor V Leiden Prothrombin [id number] Lupus anticoagulant Anticardiolipin antibodies Elevated serum homocysteine Heparin-induced thrombocytopenia Other congenital or acquired thrombophilia Stroke (< 1 month) Elective arthroplasty Hip, pelvis, or leg fracture Acute spinal cord injury (< 1 month) <Autumn Gastelum - 01/26/18 16:45> Prophylaxis Regimen: Total Risk Factor Score Risk Level Prophylaxis Regimen 0-1 Low Early ambulation 2 Moderate Order ONE of the following: *Sequential Compression Device (SCD) *Heparin 5000 units SQ BID 3-4 Higher Order ONE of the following medications: *Heparin 5000 units SQ TID *Enoxaparin/Lovenox 40 mg SQ daily (WT < 150 kg, CrCl > 30 mL/min) *Enoxaparin/Lovenox 30 mg SQ daily (WT < 150 kg, CrCl > 10-29 mL/min) *Enoxaparin/Lovenox 30 mg SQ BID (WT < 150 kg, CrCl > 30 mL/min) AND/OR *Sequential Compression Device (SCD) 5 or more Highest Order ONE of the following medications: *Heparin 5000 units SQ TID (Preferred with Epidurals) *Enoxaparin/Lovenox 40 mg SQ daily (WT < 150 kg, CrCl > 30 mL/min) *Enoxaparin/Lovenox 30 mg SQ daily (WT < 150 kg, CrCl > 10-29 mL/min) *Enoxaparin/Lovenox 30 mg SQ BID (WT < 150 kg, CrCl > 30 mL/min) AND *Sequential Compression Device (SCD) <Estrellita Power - 01/27/18 20:58> Total Risk Factor Score Risk Level Prophylaxis Regimen 0-1 Low Early ambulation 2 Moderate Order ONE of the following: *Sequential Compression Device (SCD) *Heparin 5000 units SQ BID 3-4 Higher Order ONE of the following medications: *Heparin 5000 units SQ TID *Enoxaparin/Lovenox 40 mg SQ daily (WT < 150 kg, CrCl > 30 mL/min) *Enoxaparin/Lovenox 30 mg SQ daily (WT < 150 kg, CrCl > 10-29 mL/min) *Enoxaparin/Lovenox 30 mg SQ BID (WT < 150 kg, CrCl > 30 mL/min) AND/OR *Sequential Compression Device (SCD) 5 or more Highest Order ONE of the following medications: *Heparin 5000 units SQ TID (Preferred with Epidurals) *Enoxaparin/Lovenox 40 mg SQ daily (WT < 150 kg, CrCl > 30 mL/min) *Enoxaparin/Lovenox 30 mg SQ daily (WT < 150 kg, CrCl > 10-29 mL/min) *Enoxaparin/Lovenox 30 mg SQ BID (WT < 150 kg, CrCl > 30 mL/min) AND *Sequential Compression Device (SCD) <Autumn Gastelum - 01/26/18 16:45> Assessment and Plan - Assessment (1) Pancreatitis Code(s): K85.90 - Acute pancreatitis without necrosis or infection, unspecified Status: Acute (2) Gastroparesis Code(s): K31.84 - Gastroparesis Status: Chronic (3) Migraine Code(s): G43.909 - Migraine, unspecified, not intractable, without status migrainosus Status: Acute (4) Alcohol use Code(s): Z78.9 - Other specified health status Status: Acute (5) Bipolar disorder Code(s): F31.9 - Bipolar disorder, unspecified Status: Chronic (6) Marijuana abuse Code(s): F12.10 - Cannabis abuse, uncomplicated Status: Chronic <TonoEstrellita - 01/27/18 20:58> (1) Pancreatitis Code(s): K85.90 - Acute pancreatitis without necrosis or infection, unspecified Status: Acute Plan: Patient with abdominal pain and vomiting. Patient's description of her abdominal pain points to pancreatitis. Lipase is 817 upon admission. CBC is WNL. CRP is negative. Triglycerides are high at 260. Patient is positive for cannabinoids which can lead to hyperemesis. Maybe due to alcohol versus hypertriglyceridemia versus intra-abdominal etiology (patient is status post cholecystectomy) CT abdomen/ pelvis on admission shows that the pancreas is WNL. No evidence of acute abdominal or pelvic process. Patient stated that she felt like she could eat and was hungry, so deferred n.p.o. status -Clear liquid diet. Advance as tolerated -NS at 200 mL's per hour -I's and O's (2) Gastroparesis Code(s): K31.84 - Gastroparesis Status: Chronic Plan: Patient with a 15 year history of gastroparesis, due to unknown etiology. Was previously on Reglan until a year ago. -We will consider restarting Reglan to see if it relieves vomiting symptoms (3) Migraine Code(s): G43.909 - Migraine, unspecified, not intractable, without status migrainosus Status: Acute Plan: Patient states that a migraine triggered her episode of vomiting and abdominal pain. -Will continue to monitor -Will consider adding an abortive medication in case patient gets another migraine (4) Alcohol use Code(s): Z78.9 - Other specified health status Status: Acute Plan: Patient states that she has been sober for 7 years. Drank equivalent of 2 shots of vodka last night to try to relieve her headache and sleep. CBC is WNL , no signs of microcytic anemia. LFTs are WNL. -CIWA protocol, can DC if score is negligible -Escalate care as needed (5) Bipolar disorder Code(s): F31.9 - Bipolar disorder, unspecified Status: Chronic Plan: Continue at home medication of quetiapine 300 mg p.o. at bedtime (6) Nutrition, metabolism, and development symptoms Code(s): R63.8 - Other symptoms and signs concerning food and fluid intake Status: Acute Plan: Fluids: NS @ 200ml/hr Electrolytes: monitor and replete as needed Nutrition: clear liquid (7) DVT prophylaxis Status: Acute Plan: DVT Prophylaxis: Early ambulation. bilateral SCDs <Autumn Gastelum - 01/27/18 06:51> - Assessment and Plan 37-year-old white female with a PMH of bipolar disorder, gastroparesis presenting with abdominal pain. Lipase elevated, likely pancreatitis. Admitted to our service for observation. <Oriana,Autumn G - 01/27/18 06:54> Discussed Condition With: Dr. Sloan, STEPHEN physician <Hema Gastelumruben Carrillo - 01/27/18 06:46> Discharge Planning: Pending clinical course <Hema Gastelumruben Carrillo - 01/27/18 06:46> <Estrellita Power - Last Filed: 01/27/18 20:58> (1) Pancreatitis Qualifiers: Chronicity: acute Pancreatitis type: alcohol induced (3) Migraine Qualifiers: Migraine type: with aura Status migrainosus presence: without status migrainosus Intractability: not intractable Qualified Code(s): G43.109 - Migraine with aura, not intractable, without status migrainosus <Estrellita Power - Last Filed: 01/27/18 20:58> (1) Pancreatitis Qualifiers: Chronicity: acute Pancreatitis type: alcohol induced (3) Migraine Qualifiers: Migraine type: with aura Status migrainosus presence: without status migrainosus Intractability: not intractable Qualified Code(s): G43.109 - Migraine with aura, not intractable, without status migrainosus
[2018-01-26] MEDS: Sod Chloride 0.9% Inj 1,000 ML IV.CONT SCH ×2 (16:54→21:01)
[2018-01-26 19:00] LABS: Amphetamine Screen,Urine Neg (Neg); Barbiturate Screen,Urine Neg (Neg); Cannabinoid Screen,Urine Pos (Neg); Cocaine Screen,Urine Neg (Neg)
[2018-01-26 19:09] LABS: Opiate Screen,Urine Neg (Neg)
[2018-01-26 19:25] LABS: Triglycerides 260 mg/dL (42-150)
[2018-01-26] MEDS ORDERED: Haloperidol Inj 5 MG/ML Ampul IV.PUSH PRN (20:22)
[2018-01-26] MEDS ORDERED: LORazepam 1 MG Tablet PO PRN (20:22)
[2018-01-26] MEDS: QUETIAPINE 300 MG PO SCH (21:00)
[2018-01-26] MEDS ORDERED: QUETIAPINE 300 MG PO SCH (21:00)
[2018-01-27] MEDS: Sod Chloride 0.9% Inj 1,000 ML IV.CONT SCH ×2 (01:08→05:31)
--- NOTE | 2018-01-27 07:20 | P.PNFP ---
Subjective Interval history: This progress note is written in conjunction with resident H&P dated 01/26/2018. Joanne Irizarry is a 37yo lady with known gastroparesis and h/o alcohol abuse ( sober x 7 years) admitted for headache and abdominal pain. She apparently has been having a bad headache - migraine, for which she drank an alcoholic beverage last night. She then developed abdominal pain and sought emergent medical attention. For further details, please see resident H&P. Overnight, she required PRN nausea and pain medication This morning, she reports headache continues but nausea has improved. In addition to headache, she is having tearing of her right eye. She has tolerated gatorade. SHe would like to go home if able. ROS: Per resident H&P. Significant for: Headache, abdominal pain, loose stools, nausea, vomiting. + dizziness. All other systems reviewed are negative. PMH/PSxH/SocHx/FamHx: Per resident H&P. Significant for: gastroparesis, GERD, bipolar disorder and anxiety, asthma, cholecystectomy, appendectomy, hysterectomy, umbilical hernia repair. Prior alcohol abuse, sober x 7 years, until drink last night. Occ marijuana. + tobacco abuse, 1/2PPD. Results - Labs Result diagrams: 01/27/18 06:00 01/27/18 06:00 Abnormal lab results 01/26/18 01/26/18 01/26/18 Range/Units 09:19 09:19 09:55 Chloride 109 H (98-107) meq/L Carbon Dioxide 18.3 L (21.0-32.0) meq/L Estimated GFR 83 L (>89) mL/min Random Glucose 154 H (74-106) mg/dL Triglycerides (42-150) mg/dL Lipase 817 H (73-393) U/L Urine Bacteria Rare H (None) /hpf U Cannabinoids Screen Pos H (Neg) 01/26/18 Range/Units 09:55 Chloride (98-107) meq/L Carbon Dioxide (21.0-32.0) meq/L Estimated GFR (>89) mL/min Random Glucose (74-106) mg/dL Triglycerides 260 H (42-150) mg/dL Lipase (73-393) U/L Urine Bacteria (None) /hpf U Cannabinoids Screen (Neg) Short CBC 01/26/18 Range/Units 09:52 WBC 8.6 (4.0-11.0) th/mm3 Hgb 13.5 (11.6-15.3) gm/dL Hct 40.2 (35.0-46.0) % Plt Count 252 (150-450) th/mm3 BMP 01/26/18 09:55 Sodium 140 Potassium 4.0 Chloride 109 H Carbon Dioxide 18.3 L BUN 15 Creatinine 0.77 Calcium 8.5 Liver Function 01/26/18 Range/Units 09:55 Total Bilirubin 0.3 (0.2-1.0) mg/dL AST 24 (15-37) U/L ALT 23 (10-53) U/L Alkaline Phosphatase 60 (45-117) U/L Albumin 3.4 (3.4-5.0) g/dL Urine 01/26/18 Range/Units 09:19 Urine Color Yellow (Yellw/Straw) Urine Clarity Clear (Clear) Urine pH 6.0 (5.0-8.5) Ur Specific [place] 1.012 (1.002-1.035) Urine Protein Negative (Neg-Trace) mg/dL Urine Glucose (UA) 50 (Negative) mg/dL - Imaging Impressions Abdomen/Pelvis CT 01/26/18 13:41 CONCLUSION: No evidence of acute abdominal or pelvic process. No masses are identified. Diverticulosis without evidence of diverticulitis. Physical Exam Vital signs: Vital Signs 01/26/18 08:36 01/26/18 12:40 01/26/18 18:07 Temperature 97.9 F 98.7 F Pulse Rate 88 67 59 L Respiratory Rate 18 Blood Pressure 197/94 H 120/72 129/75 Pulse Oximetry 99 98 99 01/26/18 19:17 01/27/18 00:18 01/27/18 03:48 Temperature 97.9 F 97.9 F 97.9 F Pulse Rate 54 L 61 58 L Respiratory Rate 17 16 17 Blood Pressure 128/78 102/63 108/60 Pulse Oximetry 99 95 96 Intake & Output 01/26/18 01/27/18 01/27/18 18:59 06:59 18:59 Intake Total 3000 / 3000 Balance 3000 / 3000 Weight 81.6 kg Intake: IV 3000 / 3000 NS Inj 1,000 ML @ 200 mls/hr IV 3000 / 3000 .CONT .Q5H [facility] Rx#:[id number] Other: # Voids 6 # Bowel Movements 2 Narrative: Per resident H&P. Significant for: In NAD, no resp distress. nontoxic. Lying with eyes closed when the overhead lights are on. + Mild bitemporal tenderness. Normal neurologic exam. +BS, soft, nondistended. + tenderness at RUQ and epigastrium. Questionable Left CVAT. Assessment and Plan - Assessment (1) Pancreatitis Code(s): K85.90 - Acute pancreatitis without necrosis or infection, unspecified Status: Acute Plan: Patient with abdominal pain and vomiting. Patient's description of her abdominal pain points to pancreatitis. Lipase is 817 upon admission, now WNL. CBC is WNL. CRP is negative. Triglycerides are high at 260. Patient is positive for cannabinoids which can lead to hyperemesis. Maybe due to alcohol versus hypertriglyceridemia versus intra-abdominal etiology (patient is status post cholecystectomy) CT abdomen/ pelvis on admission shows that the pancreas is WNL. No evidence of acute abdominal or pelvic process. Patient stated that she felt like she could eat and was hungry, so deferred n.p.o. status -Clear liquid diet. Advance as tolerated -NS at 200 mL's per hour -I's and O's (2) Gastroparesis Code(s): K31.84 - Gastroparesis Status: Chronic Plan: Patient with a 15 year history of gastroparesis, due to unknown etiology. Was previously on Reglan until a year ago. Vomiting has improved; will hold off on adding reglan to regimen at this time. (3) Migraine Code(s): G43.909 - Migraine, unspecified, not intractable, without status migrainosus Status: Acute Plan: Patient states that a migraine triggered her episode of vomiting and abdominal pain. Consider migraine vs cluster headache vs temporal arteritis vs other. Check ESR, as pt with bitemporal tenderness. -Will consider adding an abortive medication in case patient gets another migraine (4) Alcohol use Code(s): Z78.9 - Other specified health status Status: Acute Plan: Patient states that she has been sober for 7 years. Drank equivalent of 2 shots of vodka last night to try to relieve her headache and sleep. CBC is WNL , no signs of microcytic anemia. LFTs are WNL. -CIWA protocol, can DC if score is negligible -Escalate care as needed (5) Bipolar disorder Code(s): F31.9 - Bipolar disorder, unspecified Status: Chronic Plan: Continue at home medication of quetiapine 300 mg p.o. at bedtime (6) Marijuana abuse Code(s): F12.10 - Cannabis abuse, uncomplicated Status: Chronic Plan: May be contributing to abdominal pain. Will residential substance abuse counselor to quit/avoid use. - Assessment and Plan 37-year-old white female with a PMH of bipolar disorder, gastroparesis presenting with abdominal pain. Lipase elevated, likely pancreatitis. Admitted to our service for observation. Discharge Planning: Discharge once headache improved and tolerating PO. Possibly today. - Attending Attestation Patient seen, examined, and discussed with resident team. (1) Pancreatitis Qualifiers: Chronicity: acute Pancreatitis type: alcohol induced (3) Migraine Qualifiers: Migraine type: with aura Status migrainosus presence: without status migrainosus Intractability: not intractable Qualified Code(s): G43.109 - Migraine with aura, not intractable, without status migrainosus
[2018-01-27 07:23] LABS: Baso # (Auto) 0.1 th/mm3 (0.0-0.2); Baso % (Auto) 0.8 % (0.0-2.0); Eos # (Auto) 0.1 th/mm3 (0.0-0.4); Eos % (Auto) 1.9 % (0.0-4.0); Hematocrit 38.2 % (35.0-46.0); Hemoglobin 13.1 gm/dL (11.6-15.3); Lymph # (Auto) 3.5 th/mm3 (1.0-4.8); Lymph % (Auto) 44.6 % (9.0-44.0); Mean Corpuscular HGB Conc 34.2 % (32.0-36.0); Mean Corpuscular Hemoglobin 32.1 pg (27.0-34.0); Mean Corpuscular Volume 94.1 fL (80.0-100.0); Mean Platelet Volume 7.2 fL (7.0-11.0); Mono # (Auto) 0.4 th/mm3 (0.0-0.9); Mono % (Auto) 5.6 % (0.0-8.0); Neut # (Auto) 3.7 th/mm3 (1.8-7.7); Neut % (Auto) 47.1 % (16.0-70.0); Platelet Count 243 th/mm3 (150-450); Red Blood Count 4.07 mil/mm3 (4.00-5.30); Red Cell Distribution Width 12.3 % (11.6-17.2); White Blood Count 7.8 th/mm3 (4.0-11.0)
[2018-01-27 08:29] LABS: Anion Gap 10 meq/L (5-15); Blood Urea Nitrogen 11 mg/dL (7-18); Calcium 7.4 mg/dL (8.5-10.1); Carbon Dioxide 14.4 meq/L (21.0-32.0); Chloride 117 meq/L (98-107); Glomerular Filtration Rate Greater Than 89 mL/min (>89); Glucose,Random 72 mg/dL (74-106); Lipase 238 U/L (73-393); Potassium 3.9 meq/L (3.5-5.1); Sodium 141 meq/L (136-145)
[2018-01-27 08:56] LABS: Total Protein 5.6 g/dL (6.4-8.2)
[2018-01-27] MEDS: Pantoprazole Inj 40 MG Vial IV.PUSH SCH (09:59)
[2018-01-27] MEDS: QUETIAPINE 300 MG PO SCH (22:12)
[2018-01-28] MEDS: Pantoprazole Inj 40 MG Vial IV.PUSH SCH (10:51)
--- NOTE | 2018-01-28 12:19 | P.PNFP ---
Subjective Interval history: Patient seen and examined this morning. She states that she is still having abdominal pain. She was able to keep down food last night. She ate Jell-O, pudding, and a frappe from [employer]. She has some nausea, no vomiting. She states that her migraine had resolved with the sumatriptan. She states that she is ready to be discharged home, but would like to have a prescription for pain meds. No fevers or chills, no chest pain, no shortness of breath. <Autumn Gastelum - 01/28/18 17:55> Results - Labs Result diagrams: 01/27/18 06:00 01/27/18 06:00 <Estrellita Power - 01/28/18 20:19> Physical Exam Vital signs: Vital Signs 01/28/18 00:00 01/28/18 04:00 01/28/18 04:49 Temperature 97.4 F L 97.8 F Pulse Rate 65 60 Respiratory Rate 20 20 14 Blood Pressure 115/72 108/59 L Pulse Oximetry 97 95 01/28/18 07:27 01/28/18 11:13 Temperature 97.6 F 98.1 F Pulse Rate 65 60 Respiratory Rate 16 16 Blood Pressure 123/65 144/68 H Pulse Oximetry 95 97 Intake & Output 01/28/18 01/28/18 01/29/18 06:59 18:59 06:59 Intake Total 900 / 900 Balance 900 / 900 Intake: IV 900 / 900 NS Inj 1,000 ML @ 200 mls/hr IV 900 / 900 .CONT .Q5H [facility] Rx#:[id number] Other: Date of Last Bowel Movement 01/28/18 <Estrellita Power - 01/28/18 20:19> Vital Signs 01/27/18 16:00 01/27/18 20:00 01/28/18 00:00 Temperature 98.2 F 98 F 97.4 F L Pulse Rate 53 L 60 65 Respiratory Rate 16 20 20 Blood Pressure 123/74 118/80 115/72 Pulse Oximetry 98 98 97 01/28/18 04:00 01/28/18 04:49 01/28/18 07:27 Temperature 97.8 F 97.6 F Pulse Rate 60 65 Respiratory Rate 20 14 16 Blood Pressure 108/59 L 123/65 Pulse Oximetry 95 95 01/28/18 11:13 Temperature 98.1 F Pulse Rate 60 Respiratory Rate 16 Blood Pressure 144/68 H Pulse Oximetry 97 Intake & Output 01/27/18 01/28/18 01/28/18 18:59 06:59 18:59 Intake Total 900 / 900 Balance 900 / 900 Intake: IV 900 / 900 NS Inj 1,000 ML @ 200 mls/hr IV 900 / 900 .CONT .Q5H [facility] Rx#:[id number] <Autumn Gastelum - 01/28/18 12:19> Narrative: GENERAL: white female laying in bed , in no acute distress SKIN: Warm and dry. HEAD: Atraumatic. Normocephalic. EYES: No scleral icterus. No injection or drainage. ENT: No nasal bleeding or discharge. Mucous membranes pink and moist. NECK: Trachea midline. No JVD. CARDIOVASCULAR: Regular rate and rhythm. RESPIRATORY: No accessory muscle use. Clear to auscultation. Breath sounds equal bilaterally. GASTROINTESTINAL: Abdomen soft, tender at RUQ, nondistended. Hepatic and splenic margins not palpable. MUSCULOSKELETAL: Extremities without clubbing, cyanosis, or edema. No obvious deformities. NEUROLOGICAL: Awake and alert. No obvious cranial nerve deficits. Motor grossly within normal limits. Five out of 5 muscle strength in the arms and legs. Normal speech. PSYCHIATRIC: Appropriate mood and affect; insight and judgment normal. <Autumn Gastelum - 01/28/18 17:55> Assessment and Plan - Assessment (1) Pancreatitis Code(s): K85.90 - Acute pancreatitis without necrosis or infection, unspecified Status: Acute (2) Gastroparesis Code(s): K31.84 - Gastroparesis Status: Chronic (3) Migraine Code(s): G43.909 - Migraine, unspecified, not intractable, without status migrainosus Status: Acute (4) Alcohol use Code(s): Z78.9 - Other specified health status Status: Acute (5) Bipolar disorder Code(s): F31.9 - Bipolar disorder, unspecified Status: Chronic (6) Marijuana abuse Code(s): F12.10 - Cannabis abuse, uncomplicated Status: Chronic <Estrellita Power - 01/28/18 20:19> (1) Pancreatitis Code(s): K85.90 - Acute pancreatitis without necrosis or infection, unspecified Status: Acute Plan: Patient with abdominal pain and vomiting. Patient's description of her abdominal pain points to pancreatitis. Lipase is 817 upon admission, now WNL. CBC is WNL. CRP is negative. Triglycerides are high at 260. Patient is positive for cannabinoids which can lead to hyperemesis. Maybe due to alcohol versus hypertriglyceridemia versus intra-abdominal etiology (patient is status post cholecystectomy) CT abdomen/ pelvis on admission shows that the pancreas is WNL. No evidence of acute abdominal or pelvic process. 01/27 patient able to keep down food. No vomiting. Lipase has normalized at 238 Patient stated that she felt like she could eat and was hungry, so deferred n.p.o. status on admission. -Regular diet. -NS at 200 mL's per hour, d/c'd -I's and O's (2) Gastroparesis Code(s): K31.84 - Gastroparesis Status: Chronic Plan: Patient with a 15 year history of gastroparesis, due to unknown etiology. Was previously on Reglan until a year ago. Vomiting has improved; will hold off on adding reglan to regimen at this time. Will d/c with reglan -noted interaction with quetiapine, discussed with patient and she states that she has taken it together before without issue (3) Migraine Code(s): G43.909 - Migraine, unspecified, not intractable, without status migrainosus Status: Acute Plan: Patient states that a migraine triggered her episode of vomiting and abdominal pain. Consider migraine vs cluster headache vs temporal arteritis vs other. ESR is WNL. -Sumatriptan helped to resolve migraine (4) Alcohol use Code(s): Z78.9 - Other specified health status Status: Acute Plan: Patient states that she has been sober for 7 years. Drank equivalent of 2 shots of vodka last night to try to relieve her headache and sleep. CBC is WNL , no signs of microcytic anemia. LFTs are WNL. -CIWA protocol, can DC if score is negligible -Escalate care as needed (5) Bipolar disorder Code(s): F31.9 - Bipolar disorder, unspecified Status: Chronic Plan: Continue at home medication of quetiapine 300 mg p.o. at bedtime (6) Marijuana abuse Code(s): F12.10 - Cannabis abuse, uncomplicated Status: Chronic Plan: May be contributing to abdominal pain. Will correctional classification counselor to quit/avoid use. <Autumn Gastelum - 01/28/18 17:39> - Assessment and Plan 37-year-old white female with a PMH of bipolar disorder, gastroparesis presenting with abdominal pain. Lipase elevated, likely pancreatitis. Admitted to our service for observation. <Autumn Gastelum - 01/28/18 17:55> Discharge Planning: Home today <Autumn Gastelum - 01/28/18 17:55> - Attending Attestation Patient seen and examined this morning, discussed with resident team. I agree with assessment and management as documented and discussed with me. Pt tolerating PO. Discharge home today. Discussed importance of healthy eating - avoidance of fried/fatty foods, as well as complete avoidance of alcohol. All questions answered to the best of my abilities. <Estrellita Power - 01/28/18 20:19> <Autumn Gastelum - Last Filed: 01/28/18 17:39> (1) Pancreatitis Qualifiers: Chronicity: acute Pancreatitis type: alcohol induced (3) Migraine Qualifiers: Migraine type: with aura Status migrainosus presence: without status migrainosus Intractability: not intractable Qualified Code(s): G43.109 - Migraine with aura, not intractable, without status migrainosus <Estrellita Power - Last Filed: 01/28/18 20:19> (1) Pancreatitis Qualifiers: Chronicity: acute Pancreatitis type: alcohol induced (3) Migraine Qualifiers: Migraine type: with aura Status migrainosus presence: without status migrainosus Intractability: not intractable Qualified Code(s): G43.109 - Migraine with aura, not intractable, without status migrainosus <Autumn Gastelum - Last Filed: 01/28/18 17:39> (1) Pancreatitis Qualifiers: Chronicity: acute Pancreatitis type: alcohol induced (3) Migraine Qualifiers: Migraine type: with aura Status migrainosus presence: without status migrainosus Intractability: not intractable Qualified Code(s): G43.109 - Migraine with aura, not intractable, without status migrainosus <Estrellita Power - Last Filed: 01/28/18 20:19> (1) Pancreatitis Qualifiers: Chronicity: acute Pancreatitis type: alcohol induced (3) Migraine Qualifiers: Migraine type: with aura Status migrainosus presence: without status migrainosus Intractability: not intractable Qualified Code(s): G43.109 - Migraine with aura, not intractable, without status migrainosus
--- NOTE | 2018-02-03 11:06 | P.DS ---
Date of admission: 01/26/18 14:29 Primary care physician: No Primary Care Physician Brief History from admission: Ms. Irizarry is a 37-year-old white female with past medical history of gastroparesis, bipolar disorder, anxiety presenting with abdominal pain and headache. She describes the headache as a 9/10 dull pain that started 3 days ago. She took some ibuprofen, but it led into a migraine. She experienced vomiting, flashes of light, a feeling of stabbing and twisting in her right eye that was off and on. She stated that the flashes of light looked like firecrackers. She also experienced pressure on the right side of her head, photophobia, phonophobia, and smells bother her. Also tried Excedrin and other [id number] pain medications for migraines. She states that the pain became worse and worse until she could not handle it anymore. She describes her abdominal pain is a 8/10 burning type pain over the top of her gallbladder incision in her RUQ/epigastric region that radiates through to her back. Is worse with eating and vomiting, better with laying down and the medication (Mystic) that she got in the ED. She states that when she belches it tasted spell like sulfur. Also she has passes gas it smells the same way. She does have a history of GERD. The last meal that she kept down was 3 days ago, before the vomiting began. She was diagnosed with gastroparesis 15 years ago, the result of a gastric emptying study. She was on Reglan about a year ago. Of note, she has been sober from alcohol for 7 years. She had previously gone to rehab. However, she had an alcoholic beverage of vodka mixed with bond Coke last night due to her headache being so bad. PMH Gastroparesis Asthma Bipolar disorder Anxiety PSH Cholecystectomy Appendectomy partial hysterectomy Umbilical hernia repairx2 C4,5 fusion in neck FHx Mother- , heart dz Father-, lung ca Social hx Halley with [employer] Works with 01/23 Alcohol- sober for 7 yrs Tobacco- 1/2ppd, greatly decreased, since 13yo Illicit- marijuana occasionally DS: Medications - Discharge Medications Prescriptions: hydrocodone-acetaminophen 1 tab PO Q6H PRN #12 tab PRN Reason: Pain Scale 6 To 10 metoclopramide HCl 5 mg PO TID 30 Days #90 tab sumatriptan succinate See Label Instructions .ROUTE .COMPLEX #10 tab DS: Summary Hospital Course: Patient is a 37-year-old female with past medical history of gastroparesis, bipolar disorder, anxiety admitted for likely pancreatitis. Patient's lipase was elevated to 817 on admission which resolved with IV fluids. CT abdomen performed an EGD showed no evidence of acute abdominal or pelvic process without mass, no pancreatic enlargement or peripancreatic fluid. Patient given Mystic, Zofran, and Protonix for abdominal discomfort. Given patient's history of gastroparesis considered placing on Reglan however due to patient's home medication list unable to start this medication due to drug interaction with Seroquel. While in the hospital patient also complained of sudden stabbing right sided eye pain associated with flashes of light concerning for cluster headache. ESR was negative. Patient was given high flow O2 and sumatriptan for migraine prophylaxis. Headache resolved on discharge. Patient was discharged in stable condition home with 3 days of pain medication, metoclopramide, and sumatriptan for migraine headache prophylaxis. - Time Spent with Patient Total time spent providing and/or coordinating discharge services: - Quality: VTE Deep Vein Thrombosis/Pulmonary Embolism Present on Admission: No Results Procedures completed during hospitalization: none - Impressions ITS Impressions Abdomen/Pelvis CT 01/26/18 13:41 CONCLUSION: No evidence of acute abdominal or pelvic process. No masses are identified. Diverticulosis without evidence of diverticulitis. Discharge Plan - Discharge Disposition Patient Disposition: 01 Discharge Home - Discharge Condition Condition: Stable - Discharge Order Discharge Orders: Discharge Order (Routine); Ordered 01/28/18 Ordered By: Autumn Gastelum - Discharge Details Anticipated Discharge Date: 01/28/18 - Physicians Team Primary Care Provider: Primary Care Shiloh,Alayna Attending Provider: Estrellita Power
== END 2018-01-28 17:15 | disposition home or self-care (01) ==
LOC: NEPE 08:31 → NEPFCDU 08:31 → NEDA 08:31 → NEPFCDU 18:24
PROVIDERS: ADMIT Family Medicine; ATTEND Family Medicine